=== PATIENT | female | born 1955 | race Caucasian/White ===

== ENCOUNTER 2022-11-13 14:32 | Inpatient (IN) | payer OTHER ==
[2022-11-13 17:33] LABS: BASO % 0.9 % (0-2.0); EOS % 1.1 % (0-4.5); HEMATOCRIT 41.5 % (32.4-45.2); LYMPH % 21.3 % (8-40); MCH 27.3 pg (25.7-33.7); MCHC 33.7 g/dl (32.0-36.0); MEAN CELL VOLUME 80.8 fl (80-96); MEAN PLT VOLUME 7.8 fl (7.5-11.1); MONO % 8.5 % (3.8-10.2); NEUT % 68.2 % (42.8-82.8); PLATELET COUNT 328 10^3/uL (134-434); RBC 5.13 M/mm3 (3.60-5.2); RDW 14.2 % (11.6-15.6); WHITE BLOOD COUNT 9.2 K/mm3 (4.0-10.0)
[2022-11-13] MEDS ORDERED: POLYETHYLENE GLYCOL (HEALTHYLAX) 3350 17 GM PACKET PO ONE (17:45)
[2022-11-13 18:03] LABS: ALBUMIN 3.4 g/dl (3.4-5.0); BLOOD UREA NITROGEN 16.1 mg/dL (7-18); CALCIUM 8.8 mg/dL (8.5-10.1)
[2022-11-13 18:06] LABS: CREATININE 0.9 mg/dL (0.55-1.3)
[2022-11-13 18:08] LABS: BILIRUBIN,TOTAL 0.8 mg/dL (0.2-1); TOT PROT 7.7 g/dl (6.4-8.2)
[2022-11-13] MEDS ORDERED: POLYETHYLENE GLYCOL (HEALTHYLAX) 3350 17 GM PACKET ONE (18:21)
[2022-11-14] MEDS: KCL 10 MEQ IVPB 10 MEQ/100 ML INFUS.BAG IVPB SCH ×2 (01:02→01:42)
[2022-11-14] MEDS ORDERED: ACETAMINOPHEN 325 MG TABLET (FP) PO PRN (03:20)
[2022-11-14 03:56] VITALS: BMI 34.1
[2022-11-14] MEDS: SODIUM CHLORIDE 1,000 ML IV SCH ×2 (04:18→18:52)
[2022-11-14 10:40] LABS: BASO % 1.1 % (0-2.0); EOS % 2.6 % (0-4.5); HEMATOCRIT 38.5 % (32.4-45.2); HEMOGLOBIN 13.3 GM/dL (10.7-15.3); LYMPH % 37.3 % (8-40); MCH 28.4 pg (25.7-33.7); MCHC 34.5 g/dl (32.0-36.0); MEAN CELL VOLUME 82.3 fl (80-96); MONO % 11.3 % (3.8-10.2); NEUT % 47.7 % (42.8-82.8); PLATELET COUNT 314 10^3/uL (134-434); RBC 4.68 M/mm3 (3.60-5.2); WHITE BLOOD COUNT 5.5 K/mm3 (4.0-10.0)
[2022-11-14 10:59] LABS: CALCIUM 8.7 mg/dL (8.5-10.1)
[2022-11-14 11:00] LABS: ALBUMIN 3.1 g/dl (3.4-5.0); BLOOD UREA NITROGEN 15.2 mg/dL (7-18); MAGNESIUM 1.9 mg/dL (1.8-2.4)
[2022-11-14 11:03] LABS: CREATININE 0.8 mg/dL (0.55-1.3); PHOSPHOROUS 3.5 mg/dL (2.5-4.9)
[2022-11-14 11:04] LABS: BILIRUBIN,TOTAL 0.8 mg/dL (0.2-1); TOT PROT 7.2 g/dl (6.4-8.2)
[2022-11-14 15:06] LABS: EPI CELLS 23 /uL (0-25.1); HYALINE CASTS 1 /uL (0-3.1); PH,URINE 6.5 (5.0-8.0); URINE APPEARANCE CLEAR; URINE BACTERIA 11 /uL (0-1359); URINE BILIRUBIN NEGATIVE (NEGATIVE); URINE COLOR YELLOW; URINE GLUCOSE (UA) NEGATIVE (NEGATIVE); URINE KETONE TRACE (NEGATIVE); URINE LEUK ESTERASE TRACE (NEGATIVE); URINE NITRITE NEGATIVE (NEGATIVE); URINE PROTEIN 1+ (NEGATIVE); URINE RBC 10 /uL (0-23.9); URINE UROBILINOGEN 0.2 mg/dL (0.2-1.0); URINE WBC 45 /uL (0-25.8)
[2022-11-15] MEDS: SODIUM CHLORIDE 1,000 ML IV SCH ×2 (03:14→12:44)
[2022-11-15 07:34] LABS: BASO % 1.2 % (0-2.0); EOS % 2.5 % (0-4.5); HEMATOCRIT 37.4 % (32.4-45.2); HEMOGLOBIN 12.6 GM/dL (10.7-15.3); LYMPH % 37.7 % (8-40); MCHC 33.8 g/dl (32.0-36.0); MEAN CELL VOLUME 82.9 fl (80-96); MEAN PLT VOLUME 7.9 fl (7.5-11.1); NEUT % 50.6 % (42.8-82.8); PLATELET COUNT 289 10^3/uL (134-434); RBC 4.52 M/mm3 (3.60-5.2); RDW 13.7 % (11.6-15.6)
[2022-11-15 08:49] LABS: ALBUMIN 2.9 g/dl (3.4-5.0); CALCIUM 8.2 mg/dL (8.5-10.1)
[2022-11-15 08:50] LABS: BLOOD UREA NITROGEN 9.8 mg/dL (7-18); MAGNESIUM 1.9 mg/dL (1.8-2.4)
[2022-11-15 08:53] LABS: CREATININE 0.7 mg/dL (0.55-1.3); PHOSPHOROUS 3.5 mg/dL (2.5-4.9)
[2022-11-15 08:54] LABS: BILIRUBIN,TOTAL 0.7 mg/dL (0.2-1); TOT PROT 6.6 g/dl (6.4-8.2)
[2022-11-15] MEDS ORDERED: SIMETHICONE 80 MG TAB.CHEW (FP) PO ONE (21:34)
[2022-11-16 10:44] LABS: BASO % 0.9 % (0-2.0); EOS % 1.8 % (0-4.5); HEMATOCRIT 38.3 % (32.4-45.2); LYMPH % 26.3 % (8-40); MCH 28.1 pg (25.7-33.7); MEAN CELL VOLUME 82.6 fl (80-96); MEAN PLT VOLUME 8.1 fl (7.5-11.1); MONO % 8.6 % (3.8-10.2); NEUT % 62.4 % (42.8-82.8); PLATELET COUNT 306 10^3/uL (134-434); RBC 4.64 M/mm3 (3.60-5.2); RDW 13.7 % (11.6-15.6); WHITE BLOOD COUNT 6.7 K/mm3 (4.0-10.0)
[2022-11-16 11:19] LABS: CALCIUM 8.4 mg/dL (8.5-10.1)
[2022-11-16 11:20] LABS: ALBUMIN 3.1 g/dl (3.4-5.0); BLOOD UREA NITROGEN 8.2 mg/dL (7-18)
[2022-11-16 11:21] LABS: MAGNESIUM 1.7 mg/dL (1.8-2.4)
[2022-11-16 11:23] LABS: CREATININE 0.7 mg/dL (0.55-1.3); PHOSPHOROUS 2.9 mg/dL (2.5-4.9)
[2022-11-16 11:25] LABS: BILIRUBIN,TOTAL 0.8 mg/dL (0.2-1)
[2022-11-16] MEDS ORDERED: POTASSIUM CHLORIDE ORAL LIQUID 20 MEQ/15 ML PO ONE (14:50)
[2022-11-16] MEDS ORDERED: MAGNESIUM 2GM/50ML STERILE WATER IVPB IVPB ONE (15:00)
[2022-11-17 09:39] LABS: BASO % 1.2 % (0-2.0); EOS % 3.2 % (0-4.5); HEMATOCRIT 40.2 % (32.4-45.2); HEMOGLOBIN 13.7 GM/dL (10.7-15.3); LYMPH % 37.8 % (8-40); MCH 28.2 pg (25.7-33.7); MCHC 34.1 g/dl (32.0-36.0); MEAN CELL VOLUME 82.6 fl (80-96); MEAN PLT VOLUME 7.8 fl (7.5-11.1); MONO % 9.5 % (3.8-10.2); NEUT % 48.3 % (42.8-82.8); PLATELET COUNT 318 10^3/uL (134-434); RBC 4.87 M/mm3 (3.60-5.2); RDW 13.8 % (11.6-15.6); WHITE BLOOD COUNT 5.4 K/mm3 (4.0-10.0)
[2022-11-17 10:02] LABS: ALBUMIN 3.3 g/dl (3.4-5.0); CALCIUM 8.8 mg/dL (8.5-10.1)
[2022-11-17 10:03] LABS: BLOOD UREA NITROGEN 7.5 mg/dL (7-18)
[2022-11-17 10:05] LABS: BILIRUBIN,TOTAL 0.8 mg/dL (0.2-1); PHOSPHOROUS 3.2 mg/dL (2.5-4.9); TOT PROT 7.5 g/dl (6.4-8.2)
[2022-11-17 10:06] LABS: CREATININE 0.8 mg/dL (0.55-1.3)
[2022-11-18 09:29] LABS: BASO % 1.1 % (0-2.0); EOS % 3.4 % (0-4.5); HEMATOCRIT 40.9 % (32.4-45.2); HEMOGLOBIN 13.5 GM/dL (10.7-15.3); LYMPH % 38.2 % (8-40); MCH 27.1 pg (25.7-33.7); MEAN PLT VOLUME 7.9 fl (7.5-11.1); MONO % 7.5 % (3.8-10.2); NEUT % 49.8 % (42.8-82.8); PLATELET COUNT 321 10^3/uL (134-434); RBC 4.99 M/mm3 (3.60-5.2); RDW 13.9 % (11.6-15.6); WHITE BLOOD COUNT 6.3 K/mm3 (4.0-10.0)
[2022-11-18 10:01] LABS: CALCIUM 8.9 mg/dL (8.5-10.1)
[2022-11-18 10:02] LABS: ALBUMIN 3.3 g/dl (3.4-5.0)
[2022-11-18 10:04] LABS: CREATININE 0.9 mg/dL (0.55-1.3); MAGNESIUM 1.9 mg/dL (1.8-2.4); PHOSPHOROUS 3.5 mg/dL (2.5-4.9)
[2022-11-18 10:05] LABS: BILIRUBIN,TOTAL 0.6 mg/dL (0.2-1); TOT PROT 7.4 g/dl (6.4-8.2)
[2022-11-19 05:28] VITALS: PULSE 98; RESP 18
[2022-11-19 10:00] LABS: BASO % 0.9 % (0-2.0); EOS % 3.4 % (0-4.5); HEMATOCRIT 39.3 % (32.4-45.2); HEMOGLOBIN 13.4 GM/dL (10.7-15.3); LYMPH % 34.8 % (8-40); MCH 28.1 pg (25.7-33.7); MEAN CELL VOLUME 82.6 fl (80-96); MEAN PLT VOLUME 8.3 fl (7.5-11.1); MONO % 5.5 % (3.8-10.2); NEUT % 55.4 % (42.8-82.8); PLATELET COUNT 313 10^3/uL (134-434); RBC 4.76 M/mm3 (3.60-5.2); RDW 13.9 % (11.6-15.6)
[2022-11-19] MEDS ORDERED: SIMETHICONE 80 MG TAB.CHEW (FP) PO PRN (10:02)
[2022-11-19 10:24] LABS: ALBUMIN 3.4 g/dl (3.4-5.0); BLOOD UREA NITROGEN 9.6 mg/dL (7-18); CALCIUM 8.8 mg/dL (8.5-10.1)
[2022-11-19 10:25] LABS: MAGNESIUM 1.7 mg/dL (1.8-2.4)
[2022-11-19 10:27] LABS: CREATININE 0.8 mg/dL (0.55-1.3); PHOSPHOROUS 3.6 mg/dL (2.5-4.9)
[2022-11-19 10:29] LABS: BILIRUBIN,TOTAL 0.4 mg/dL (0.2-1); TOT PROT 7.3 g/dl (6.4-8.2)
[2022-11-19] MEDS ORDERED: LACTOBACILLUS ACIDOPHILUS 1 TABLET PO SCH (11:30)
[2022-11-19 14:21] VITALS: BP 127/90; TEMP 97.9
== END 2022-11-19 15:46 | disposition home or self-care (01) | DRG 392 ==
LOC: JER 14:32 → JERBED 21:37 → J6S 11-14 03:25
PROVIDERS: ADMIT Internal Medicine; ATTEND Internal Medicine
DX: K57.20 Diverticulitis of large intestine with perforation and abscess without bleeding (principal); K59.00 Constipation, unspecified; D35.02 Benign neoplasm of left adrenal gland; D35.01 Benign neoplasm of right adrenal gland; I10 Essential (primary) hypertension; E87.6 Hypokalemia
CPT/HCPCS: 0241U-QW; 36415; 74019-TC-FY; 74177-TC; 80053; 80061; 81003; 83735; 84100; 85025; 85651; 86140; 87040; 93005; 93010; 99285-25; Q9967

== ENCOUNTER 2022-12-06 14:27 | Inpatient (IN) | payer OTHER ==
[2022-12-06] MEDS ORDERED: ACETAMINOPHEN 1000 MG/100 ML BAG IVPB ONE (15:00)
[2022-12-06] MEDS ORDERED: LACTATED RINGERS SOLUTION 1000 ML INFUS.BAG IV ONE (15:00)
[2022-12-06] MEDS ORDERED: ACETAMINOPHEN INJECTION 100 ML IVPB ONE (15:26)
[2022-12-06 16:11] LABS: BASO % 0.2 % (0-2.0); EOS % 0.1 % (0-4.5); HEMATOCRIT 40.3 % (32.4-45.2); HEMOGLOBIN 13.7 GM/dL (10.7-15.3); LYMPH % 8.6 % (8-40); MCH 27.6 pg (25.7-33.7); MCHC 33.9 g/dl (32.0-36.0); MEAN CELL VOLUME 81.5 fl (80-96); MEAN PLT VOLUME 7.6 fl (7.5-11.1); MONO % 6.4 % (3.8-10.2); NEUT % 84.7 % (42.8-82.8); PLATELET COUNT 368 10^3/uL (134-434); RBC 4.94 M/mm3 (3.60-5.2); RDW 14.8 % (11.6-15.6); WHITE BLOOD COUNT 10.5 K/mm3 (4.0-10.0)
[2022-12-06] MEDS ORDERED: morphine CARPU-JECT 4 MG/1 ML DISP.SYRIN IVPUSH ONE ×2 (16:14→18:59)
[2022-12-06] MEDS ORDERED: morphine SULFATE 4 MG/ML VIAL ONE ×3 (16:17→21:54)
[2022-12-06 16:47] LABS: POTASSIUM 3.3 mmol/L (3.5-5.1)
[2022-12-06 16:49] LABS: CALCIUM 9.2 mg/dL (8.5-10.1)
[2022-12-06 16:50] LABS: ALBUMIN 3.3 g/dl (3.4-5.0); BLOOD UREA NITROGEN 14.3 mg/dL (7-18)
[2022-12-06 16:51] LABS: MAGNESIUM 1.6 mg/dL (1.8-2.4)
[2022-12-06 16:53] LABS: CREATININE 0.8 mg/dL (0.55-1.3)
[2022-12-06 16:55] LABS: TOT PROT 7.8 g/dl (6.4-8.2)
[2022-12-06 16:59] LABS: LACTIC ACID 2.3 mmol/L (0.4-2.0)
[2022-12-06] MEDS: KCL 10 MEQ IVPB 10 MEQ/100 ML INFUS.BAG IVPB SCH ×3 (17:30→18:56)
[2022-12-06] MEDS ORDERED: PIPERACILLIN/TAZOB 4.5 GM 4.5 GM in DEXTROSE 5%-WATER 100 ML IVPB ONE (18:11)
[2022-12-06] MEDS ORDERED: PIPERACILLIN/TAZOB 4.5 GM 4.5 GM/100 ML BAG IVPB ONE (18:44)
[2022-12-06] MEDS ORDERED: KCL 10 MEQ IVPB 30 MEQ/300 ML INFUS.BAG IVPB ONE (18:44)
[2022-12-06] MEDS ORDERED: KETOROLAC TROMETHAMINE 15 MG/ML VIAL IVPUSH ONE (19:14)
[2022-12-06] MEDS ORDERED: KETOROLAC TROMETHAMINE 15 MG/ML VIAL ONE (20:10)
[2022-12-06] MEDS ORDERED: PIPERACILLIN/TAZOB 3.375 GM 3.375 GM in DEXTROSE 5%-WATER - 50 ML IVPB SCH (21:00)
[2022-12-06 21:31] LABS: URINE APPEARANCE CLEAR; URINE BILIRUBIN NEGATIVE (NEGATIVE); URINE COLOR YELLOW; URINE GLUCOSE (UA) NEGATIVE (NEGATIVE); URINE KETONE 15 mg/dl (NEGATIVE)
[2022-12-06 21:32] LABS: PH,URINE 6.5 (5.0-8.0); URINE LEUK ESTERASE NEGATIVE (NEGATIVE); URINE NITRITE NEGATIVE (NEGATIVE); URINE PROTEIN 30 (NEGATIVE)
[2022-12-06] MEDS: LACTATED RINGERS SOLUTION 1,000 ML IV SCH (21:52)
[2022-12-06] MEDS: morphine SULFATE 4 MG/ML VIAL IVPUSH PRN (21:59)
[2022-12-07] MEDS: PIPERACILLIN/TAZOB 3.375 GM 3.375 GM in DEXTROSE 5%-WATER - 50 ML IVPB SCH ×4 (01:07→21:23)
[2022-12-07] MEDS ORDERED: MAGNESIUM 2GM/50ML STERILE WATER IVPB IVPB ONE (04:15)
[2022-12-07] MEDS: morphine SULFATE 4 MG/ML VIAL IVPUSH PRN ×3 (07:40→21:15)
[2022-12-07] MEDS ORDERED: ONDANSETRON 4 MG/2 ML VIAL IVPUSH ONE (08:15)
[2022-12-07] MEDS ORDERED: TRIMETHOBENZAMIDE HCL 200MG/2ML INJ IM PRN (08:52)
[2022-12-07 09:07] LABS: INR 1.2 (0.83-1.09); PROTHROMBIN TIME (PATIENT) 13.9 SEC (9.7-13.0)
[2022-12-07 09:10] LABS: ACTIVATED PTT 26.9 SECONDS (25.2-36.5); HEMATOCRIT 36.5 % (32.4-45.2); HEMOGLOBIN 12.4 GM/dL (10.7-15.3); MCH 27.8 pg (25.7-33.7); MEAN CELL VOLUME 81.9 fl (80-96); MEAN PLT VOLUME 7.7 fl (7.5-11.1); PLATELET COUNT 342 10^3/uL (134-434); RBC 4.46 M/mm3 (3.60-5.2); RDW 14.7 % (11.6-15.6); WHITE BLOOD COUNT 7.6 K/mm3 (4.0-10.0)
[2022-12-07 09:20] LABS: POTASSIUM 3.2 mmol/L (3.5-5.1)
[2022-12-07 09:34] LABS: CALCIUM 8.6 mg/dL (8.5-10.1)
[2022-12-07 09:35] LABS: ALBUMIN 2.7 g/dl (3.4-5.0); BLOOD UREA NITROGEN 13.6 mg/dL (7-18)
[2022-12-07 09:38] LABS: CREATININE 0.8 mg/dL (0.55-1.3); PHOSPHOROUS 3.4 mg/dL (2.5-4.9)
[2022-12-07 09:39] LABS: BILIRUBIN,TOTAL 1.1 mg/dL (0.2-1); TOT PROT 6.6 g/dl (6.4-8.2)
[2022-12-07] MEDS ORDERED: PANTOPRAZOLE SODIUM 40 MG in SODIUM CHLORIDE 100 ML IVPB SCH (10:00)
[2022-12-07] MEDS: KCL 10 MEQ IVPB 10 MEQ/100 ML INFUS.BAG IVPB SCH ×2 (10:05→12:56)
[2022-12-07] MEDS: PANTOPRAZOLE SODIUM 40 MG VIAL IVPUSH SCH (10:23)
[2022-12-07] MEDS: ACETAMINOPHEN 1000 MG/100 ML BAG IVPB PRN (15:09)
[2022-12-07] MEDS: LACTATED RINGERS SOLUTION 1,000 ML IV SCH (23:07)
[2022-12-08] MEDS: LACTATED RINGERS SOLUTION 1,000 ML IV SCH ×2 (01:11→10:41)
[2022-12-08] MEDS: ACETAMINOPHEN 1000 MG/100 ML BAG IVPB PRN (01:16)
[2022-12-08] MEDS: PIPERACILLIN/TAZOB 3.375 GM 3.375 GM in DEXTROSE 5%-WATER - 50 ML IVPB SCH ×3 (05:12→21:13)
[2022-12-08] MEDS: morphine SULFATE 4 MG/ML VIAL IVPUSH PRN ×2 (06:59→11:35)
[2022-12-08] MEDS: PANTOPRAZOLE SODIUM 40 MG VIAL IVPUSH SCH (09:47)
[2022-12-08 11:30] LABS: BASO % 0.6 % (0-2.0); EOS % 3.3 % (0-4.5); HEMATOCRIT 34.3 % (32.4-45.2); HEMOGLOBIN 11.8 GM/dL (10.7-15.3); LYMPH % 29.5 % (8-40); MCH 28.3 pg (25.7-33.7); MCHC 34.5 g/dl (32.0-36.0); MEAN CELL VOLUME 82.2 fl (80-96); MEAN PLT VOLUME 7.7 fl (7.5-11.1); NEUT % 57.6 % (42.8-82.8); PLATELET COUNT 312 10^3/uL (134-434); RBC 4.17 M/mm3 (3.60-5.2); RDW 14.8 % (11.6-15.6)
[2022-12-08 12:04] LABS: POTASSIUM 3.5 mmol/L (3.5-5.1)
[2022-12-08 12:10] LABS: CALCIUM 8.3 mg/dL (8.5-10.1)
[2022-12-08 12:11] LABS: ALBUMIN 2.7 g/dl (3.4-5.0); MAGNESIUM 1.9 mg/dL (1.8-2.4)
[2022-12-08 12:12] LABS: BLOOD UREA NITROGEN 9.7 mg/dL (7-18)
[2022-12-08 12:13] LABS: CREATININE 0.7 mg/dL (0.55-1.3)
[2022-12-08 12:15] LABS: TOT PROT 6.7 g/dl (6.4-8.2)
[2022-12-08 12:16] LABS: BILIRUBIN,TOTAL 0.7 mg/dL (0.2-1)
[2022-12-08] MEDS: KETOROLAC TROMETHAMINE 30 MG/1 ML VIAL IVPUSH PRN (19:56)
[2022-12-08] MEDS: HEPARIN NA (PORCINE) 5,000 UNITS/ML 1ML VIAL SQ SCH (21:12)
[2022-12-09] MEDS: PIPERACILLIN/TAZOB 3.375 GM 3.375 GM in DEXTROSE 5%-WATER - 50 ML IVPB SCH ×3 (05:20→22:00)
[2022-12-09] MEDS: morphine SULFATE 4 MG/ML VIAL IVPUSH PRN ×2 (06:29→17:24)
[2022-12-09 09:35] LABS: BASO % 0.8 % (0-2.0); EOS % 2.3 % (0-4.5); HEMATOCRIT 35.5 % (32.4-45.2); HEMOGLOBIN 12.3 GM/dL (10.7-15.3); LYMPH % 30.1 % (8-40); MCH 28.2 pg (25.7-33.7); MCHC 34.8 g/dl (32.0-36.0); MEAN CELL VOLUME 81.1 fl (80-96); MEAN PLT VOLUME 7.4 fl (7.5-11.1); MONO % 8.5 % (3.8-10.2); NEUT % 58.3 % (42.8-82.8); PLATELET COUNT 350 10^3/uL (134-434); RBC 4.37 M/mm3 (3.60-5.2); RDW 14.9 % (11.6-15.6); WHITE BLOOD COUNT 6.3 K/mm3 (4.0-10.0)
[2022-12-09 10:05] LABS: POTASSIUM 4.1 mmol/L (3.5-5.1)
[2022-12-09] MEDS: PANTOPRAZOLE SODIUM 40 MG VIAL IVPUSH SCH (10:06)
[2022-12-09] MEDS: HEPARIN NA (PORCINE) 5,000 UNITS/ML 1ML VIAL SQ SCH ×2 (10:06→22:00)
[2022-12-09 10:08] LABS: BLOOD UREA NITROGEN 4.9 mg/dL (7-18); CALCIUM 8.8 mg/dL (8.5-10.1); MAGNESIUM 1.8 mg/dL (1.8-2.4)
[2022-12-09 10:11] LABS: CREATININE 0.7 mg/dL (0.55-1.3)
[2022-12-09 10:13] LABS: BILIRUBIN,TOTAL 0.9 mg/dL (0.2-1); TOT PROT 7.5 g/dl (6.4-8.2)
[2022-12-09] MEDS: LACTATED RINGERS SOLUTION 1,000 ML IV SCH (15:08)
[2022-12-10] MEDS: PIPERACILLIN/TAZOB 3.375 GM 3.375 GM in DEXTROSE 5%-WATER - 50 ML IVPB SCH ×3 (05:51→22:50)
[2022-12-10] MEDS: morphine SULFATE 4 MG/ML VIAL IVPUSH PRN ×2 (09:23→20:30)
[2022-12-10] MEDS: HEPARIN NA (PORCINE) 5,000 UNITS/ML 1ML VIAL SQ SCH ×2 (09:24→22:51)
[2022-12-10] MEDS: PANTOPRAZOLE SODIUM 40 MG VIAL IVPUSH SCH (09:28)
[2022-12-10] MEDS: KETOROLAC TROMETHAMINE 30 MG/1 ML VIAL IVPUSH PRN (13:20)
[2022-12-11] MEDS: PIPERACILLIN/TAZOB 3.375 GM 3.375 GM in DEXTROSE 5%-WATER - 50 ML IVPB SCH ×3 (07:31→23:21)
[2022-12-11] MEDS: morphine SULFATE 4 MG/ML VIAL IVPUSH PRN ×3 (07:41→17:20)
[2022-12-11 10:02] LABS: BASO % 0.4 % (0-2.0); EOS % 1.5 % (0-4.5); HEMOGLOBIN 12.1 GM/dL (10.7-15.3); MCH 28.2 pg (25.7-33.7); MCHC 35.5 g/dl (32.0-36.0); MEAN CELL VOLUME 79.7 fl (80-96); MEAN PLT VOLUME 7.3 fl (7.5-11.1); MONO % 9.3 % (3.8-10.2); NEUT % 56.8 % (42.8-82.8); PLATELET COUNT 386 10^3/uL (134-434); RBC 4.27 M/mm3 (3.60-5.2); RDW 14.7 % (11.6-15.6); WHITE BLOOD COUNT 6.1 K/mm3 (4.0-10.0)
[2022-12-11 10:07] LABS: POTASSIUM 3.1 mmol/L (3.5-5.1)
[2022-12-11 10:16] LABS: ALBUMIN 2.7 g/dl (3.4-5.0); CALCIUM 8.6 mg/dL (8.5-10.1); MAGNESIUM 1.8 mg/dL (1.8-2.4)
[2022-12-11 10:19] LABS: CREATININE 0.7 mg/dL (0.55-1.3)
[2022-12-11 10:21] LABS: BILIRUBIN,TOTAL 0.7 mg/dL (0.2-1); TOT PROT 6.6 g/dl (6.4-8.2)
[2022-12-11] MEDS: PANTOPRAZOLE SODIUM 40 MG VIAL IVPUSH SCH (10:42)
[2022-12-11] MEDS: HEPARIN NA (PORCINE) 5,000 UNITS/ML 1ML VIAL SQ SCH ×2 (10:42→23:21)
[2022-12-12 08:01] LABS: BASO % 0.6 % (0-2.0); EOS % 2.8 % (0-4.5); HEMATOCRIT 36.2 % (32.4-45.2); HEMOGLOBIN 12.7 GM/dL (10.7-15.3); LYMPH % 40.3 % (8-40); MCH 28.1 pg (25.7-33.7); MCHC 34.9 g/dl (32.0-36.0); MEAN CELL VOLUME 80.4 fl (80-96); MONO % 10.9 % (3.8-10.2); NEUT % 45.4 % (42.8-82.8); PLATELET COUNT 404 10^3/uL (134-434); RBC 4.51 M/mm3 (3.60-5.2); RDW 14.4 % (11.6-15.6); WHITE BLOOD COUNT 6.1 K/mm3 (4.0-10.0)
[2022-12-12 08:30] LABS: POTASSIUM 3.5 mmol/L (3.5-5.1)
[2022-12-12 08:33] LABS: CALCIUM 8.8 mg/dL (8.5-10.1)
[2022-12-12 08:35] LABS: ALBUMIN 2.8 g/dl (3.4-5.0); BLOOD UREA NITROGEN 5.9 mg/dL (7-18); MAGNESIUM 1.8 mg/dL (1.8-2.4)
[2022-12-12 08:37] LABS: CREATININE 0.7 mg/dL (0.55-1.3)
[2022-12-12 08:39] LABS: BILIRUBIN,TOTAL 0.6 mg/dL (0.2-1)
[2022-12-12] MEDS: HEPARIN NA (PORCINE) 5,000 UNITS/ML 1ML VIAL SQ SCH ×2 (09:38→21:38)
[2022-12-12] MEDS: PANTOPRAZOLE 40 MG TABLET PO SCH (09:38)
[2022-12-12] MEDS ORDERED: AMOX TR/POT CLAV 875MG/125MG TABLETS (FP) PO SCH (10:00)
[2022-12-12] MEDS: ACETAMINOPHEN 325 MG TABLET (FP) PO PRN ×2 (12:17→21:37)
[2022-12-12] MEDS: ACETAMINOPHEN 1000 MG/100 ML BAG IVPB PRN ×2 (13:15→19:29)
[2022-12-12] MEDS: DEXTROSE 5%-NORMAL SALINE 1,000 ML IV SCH (17:11)
[2022-12-12] MEDS: PIPERACILLIN/TAZOB 3.375 GM 3.375 GM in DEXTROSE 5%-WATER - 50 ML IVPB SCH (17:12)
[2022-12-13] MEDS: PIPERACILLIN/TAZOB 3.375 GM 3.375 GM in DEXTROSE 5%-WATER - 50 ML IVPB SCH ×4 (01:40→17:19)
[2022-12-13] MEDS: DEXTROSE 5%-NORMAL SALINE 1,000 ML IV SCH ×3 (04:44→17:18)
[2022-12-13] MEDS: ACETAMINOPHEN 1000 MG/100 ML BAG IVPB PRN ×2 (05:31→09:51)
[2022-12-13] MEDS: HEPARIN NA (PORCINE) 5,000 UNITS/ML 1ML VIAL SQ SCH ×2 (09:57→22:04)
[2022-12-13] MEDS: PANTOPRAZOLE 40 MG TABLET PO SCH (09:57)
[2022-12-13] MEDS: ACETAMINOPHEN 325 MG TABLET (FP) PO PRN ×2 (15:24→22:05)
[2022-12-13] MEDS ORDERED: ACETAMINOPHEN 1000 MG/100 ML BAG IVPB ONE (16:54)
[2022-12-13 17:40] VITALS: BMI 33.4
[2022-12-14] MEDS: PIPERACILLIN/TAZOB 3.375 GM 3.375 GM in DEXTROSE 5%-WATER - 50 ML IVPB SCH ×3 (01:54→17:24)
[2022-12-14] MEDS: DEXTROSE 5%-NORMAL SALINE 1,000 ML IV SCH ×3 (02:03→17:19)
[2022-12-14] MEDS: ACETAMINOPHEN 325 MG TABLET (FP) PO PRN (04:11)
[2022-12-14] MEDS ORDERED: ACETAMINOPHEN 1000 MG/100 ML BAG IVPB PRN (09:37)
[2022-12-14] MEDS: PANTOPRAZOLE 40 MG TABLET PO SCH (09:42)
[2022-12-14] MEDS: HEPARIN NA (PORCINE) 5,000 UNITS/ML 1ML VIAL SQ SCH ×2 (09:44→21:04)
[2022-12-14] MEDS ORDERED: POTASSIUM CHLORIDE TABS 20 MEQ TABLET.ER (FP) PO ONE (11:18)
[2022-12-14] MEDS ORDERED: ONDANSETRON 4 MG/2 ML VIAL IVPUSH ONE (16:32)
[2022-12-15] MEDS: PIPERACILLIN/TAZOB 3.375 GM 3.375 GM in DEXTROSE 5%-WATER - 50 ML IVPB SCH ×3 (01:05→19:36)
[2022-12-15] MEDS: HEPARIN NA (PORCINE) 5,000 UNITS/ML 1ML VIAL SQ SCH ×2 (09:01→21:15)
[2022-12-15] MEDS: PANTOPRAZOLE 40 MG TABLET PO SCH (09:01)
[2022-12-15 10:53] LABS: BASO % 1.1 % (0-2.0); EOS % 5.4 % (0-4.5); HEMATOCRIT 29.3 % (32.4-45.2); HEMOGLOBIN 9.6 GM/dL (10.7-15.3); MCH 25.5 pg (25.7-33.7); MCHC 32.6 g/dl (32.0-36.0); MEAN CELL VOLUME 78.2 fl (80-96); MEAN PLT VOLUME 7.5 fl (7.5-11.1); NEUT % 68.5 % (42.8-82.8); PLATELET COUNT 281 10^3/uL (134-434); RBC 3.74 M/mm3 (3.60-5.2); RDW 18.5 % (11.6-15.6); WHITE BLOOD COUNT 5.6 K/mm3 (4.0-10.0)
[2022-12-15 11:12] LABS: POTASSIUM 3.7 mmol/L (3.5-5.1)
[2022-12-15 11:13] LABS: CALCIUM 8.1 mg/dL (8.5-10.1)
[2022-12-15 11:14] LABS: ALBUMIN 2.2 g/dl (3.4-5.0); BLOOD UREA NITROGEN 5.4 mg/dL (7-18); MAGNESIUM 1.7 mg/dL (1.8-2.4)
[2022-12-15 11:17] LABS: CREATININE 0.6 mg/dL (0.55-1.3)
[2022-12-15 11:19] LABS: BILIRUBIN,TOTAL 0.2 mg/dL (0.2-1); TOT PROT 7.3 g/dl (6.4-8.2)
[2022-12-15] MEDS: DEXTROSE 5%-NORMAL SALINE 1,000 ML IV SCH (19:34)
[2022-12-16] MEDS: PIPERACILLIN/TAZOB 3.375 GM 3.375 GM in DEXTROSE 5%-WATER - 50 ML IVPB SCH ×3 (02:15→17:37)
[2022-12-16] MEDS ORDERED: POLYETHYLENE GLYCOL 3350 255 GM BTL PO ONE (10:00)
[2022-12-16 10:33] LABS: BASO % 0.9 % (0-2.0); EOS % 3.3 % (0-4.5); HEMATOCRIT 34.1 % (32.4-45.2); HEMOGLOBIN 11.8 GM/dL (10.7-15.3); LYMPH % 40.9 % (8-40); MCH 28.3 pg (25.7-33.7); MCHC 34.6 g/dl (32.0-36.0); MEAN CELL VOLUME 81.7 fl (80-96); MEAN PLT VOLUME 7.1 fl (7.5-11.1); MONO % 10.3 % (3.8-10.2); NEUT % 44.6 % (42.8-82.8); PLATELET COUNT 373 10^3/uL (134-434); RBC 4.17 M/mm3 (3.60-5.2); RDW 14.7 % (11.6-15.6); WHITE BLOOD COUNT 4.9 K/mm3 (4.0-10.0)
[2022-12-16] MEDS: PANTOPRAZOLE 40 MG TABLET PO SCH (10:34)
[2022-12-16] MEDS: HEPARIN NA (PORCINE) 5,000 UNITS/ML 1ML VIAL SQ SCH (10:34)
[2022-12-16 10:52] LABS: POTASSIUM 3.2 mmol/L (3.5-5.1)
[2022-12-16 10:57] LABS: CALCIUM 8.1 mg/dL (8.5-10.1)
[2022-12-16 10:58] LABS: ALBUMIN 2.4 g/dl (3.4-5.0); MAGNESIUM 1.5 mg/dL (1.8-2.4)
[2022-12-16 11:01] LABS: CREATININE 0.7 mg/dL (0.55-1.3)
[2022-12-16 11:02] LABS: BILIRUBIN,TOTAL 0.4 mg/dL (0.2-1); TOT PROT 6.3 g/dl (6.4-8.2)
[2022-12-16] MEDS: POTASSIUM CHLORIDE TABS 20 MEQ TABLET.ER (FP) PO SCH ×2 (11:50→22:10)
[2022-12-16] MEDS: MAGNESIUM OXIDE 400 MG TABLET (FP) PO SCH ×2 (11:50→22:11)
[2022-12-16] MEDS ORDERED: BISACODYL 5 MG TABLET.DR (FP) PO ONE (12:00)
[2022-12-16] MEDS: metroNIDAZOLE 500 MG TABLET PO SCH ×3 (13:45→22:32)
[2022-12-16] MEDS: NEOMYCIN SO4 500 MG TABLET PO SCH ×3 (13:45→22:32)
[2022-12-16] MEDS: DEXTROSE 5%-NORMAL SALINE 1,000 ML IV SCH (14:08)
[2022-12-16] MEDS ORDERED: ONDANSETRON 4 MG/2 ML VIAL IVPUSH PRN (14:57)
[2022-12-17] MEDS: DEXTROSE 5%-NORMAL SALINE 1,000 ML IV SCH ×3 (01:02→17:45)
[2022-12-17] MEDS: PIPERACILLIN/TAZOB 3.375 GM 3.375 GM in DEXTROSE 5%-WATER - 50 ML IVPB SCH ×4 (01:13→17:45)
[2022-12-17] MEDS: PANTOPRAZOLE 40 MG TABLET PO SCH (10:16)
[2022-12-17 11:43] LABS: BASO % 0.6 % (0-2.0); EOS % 1.3 % (0-4.5); HEMATOCRIT 34.5 % (32.4-45.2); HEMOGLOBIN 11.9 GM/dL (10.7-15.3); LYMPH % 33.3 % (8-40); MCH 27.8 pg (25.7-33.7); MCHC 34.3 g/dl (32.0-36.0); MEAN PLT VOLUME 7.9 fl (7.5-11.1); MONO % 10.1 % (3.8-10.2); NEUT % 54.7 % (42.8-82.8); PLATELET COUNT 381 10^3/uL (134-434); RBC 4.26 M/mm3 (3.60-5.2); RDW 15.1 % (11.6-15.6); WHITE BLOOD COUNT 4.7 K/mm3 (4.0-10.0)
[2022-12-17 11:49] LABS: INR 1.18 (0.83-1.09); PROTHROMBIN TIME (PATIENT) 13.7 SEC (9.7-13.0)
[2022-12-17 11:59] LABS: POTASSIUM 3.3 mmol/L (3.5-5.1)
[2022-12-17 12:02] LABS: BLOOD UREA NITROGEN 5.3 mg/dL (7-18); CALCIUM 8.2 mg/dL (8.5-10.1); MAGNESIUM 1.4 mg/dL (1.8-2.4)
[2022-12-17 12:03] LABS: ALBUMIN 2.6 g/dl (3.4-5.0)
[2022-12-17 12:06] LABS: CREATININE 0.9 mg/dL (0.55-1.3)
[2022-12-17 12:07] LABS: BILIRUBIN,TOTAL 0.9 mg/dL (0.2-1); TOT PROT 6.6 g/dl (6.4-8.2)
[2022-12-17] MEDS: HEPARIN NA (PORCINE) 5,000 UNITS/ML 1ML VIAL SQ SCH (21:29)
[2022-12-18] MEDS ORDERED: BUPIVACAINE HCL/PF 0.5% (5MG/ML) 10 ML VIAL IJ ONE
[2022-12-18] MEDS: PIPERACILLIN/TAZOB 3.375 GM 3.375 GM in DEXTROSE 5%-WATER - 50 ML IVPB SCH ×3 (02:18→18:36)
[2022-12-18 08:46] LABS: BASO % 1.2 % (0-2.0); EOS % 3.9 % (0-4.5); HEMATOCRIT 36.5 % (32.4-45.2); HEMOGLOBIN 12.4 GM/dL (10.7-15.3); LYMPH % 39.1 % (8-40); MCH 27.7 pg (25.7-33.7); MCHC 33.9 g/dl (32.0-36.0); MEAN CELL VOLUME 81.5 fl (80-96); MEAN PLT VOLUME 7.1 fl (7.5-11.1); MONO % 8.6 % (3.8-10.2); NEUT % 47.2 % (42.8-82.8); PLATELET COUNT 384 10^3/uL (134-434); RBC 4.47 M/mm3 (3.60-5.2); RDW 15.2 % (11.6-15.6); WHITE BLOOD COUNT 4.9 K/mm3 (4.0-10.0)
[2022-12-18 09:11] LABS: POTASSIUM 3.1 mmol/L (3.5-5.1)
[2022-12-18 09:18] LABS: ALBUMIN 2.8 g/dl (3.4-5.0); CREATININE 0.7 mg/dL (0.55-1.3)
[2022-12-18 09:19] LABS: CALCIUM 8.5 mg/dL (8.5-10.1); MAGNESIUM 1.6 mg/dL (1.8-2.4); TOT PROT 6.9 g/dl (6.4-8.2)
[2022-12-18 09:25] LABS: BILIRUBIN,TOTAL 1.2 mg/dL (0.2-1)
[2022-12-18] MEDS: PANTOPRAZOLE 40 MG TABLET PO SCH (10:14)
[2022-12-18] MEDS: HEPARIN NA (PORCINE) 5,000 UNITS/ML 1ML VIAL SQ SCH (10:14)
[2022-12-18] MEDS ORDERED: SCOPOLAMINE HYDROBROMIDE 1 PATCH PATCH.TD72 TD SCH (13:00)
[2022-12-18] MEDS ORDERED: GABAPENTIN 250 MG/5 ML ORAL SOLUTION, 470 ML BOTTLE PO ONE (13:00)
[2022-12-18] MEDS ORDERED: CEFOXITIN SODIUM 1 GM IVPB ONE (14:43)
[2022-12-18] MEDS ORDERED: HEPARIN NA (PORCINE) 5,000 UNITS/ML 1ML VIAL ONE (14:43)
[2022-12-18] MEDS ORDERED: BUPIVACAINE HCL/PF 0.25% (2.5MG/ML) 10 ML VIAL ONE (14:43)
[2022-12-18] MEDS ORDERED: ROCURONIUM BROMIDE 50 MG/5 ML SYRINGE ONE ×3 (15:15→19:23)
[2022-12-18] MEDS ORDERED: MIDAZOLAM HCL 2 MG/2 ML SINGLE DOSE VIAL ONE (15:16)
[2022-12-18] MEDS ORDERED: PROPOFOL 20 ML ONE ×2 (15:16→20:28)
[2022-12-18] MEDS ORDERED: SUCCINYLCHOLINE CHLORIDE 200 MG/10 ML SYRINGE ONE (15:18)
[2022-12-18] MEDS ORDERED: SCOPOLAMINE HYDROBROMIDE 1 PATCH PATCH.TD72 ONE (15:20)
[2022-12-18] MEDS ORDERED: LIDOCAINE HCL/PF 2% SDV 5ML VIAL ONE (15:29)
[2022-12-18] MEDS ORDERED: cefOXitin SODIUM 2 GM VIAL (RESTRICTED TO ID) IVPB ONE (15:48)
[2022-12-18] MEDS ORDERED: INDOCYANINE GREEN 25 MG/10 ML VIAL IVPUSH ONE (15:50)
[2022-12-18] MEDS ORDERED: HEPARIN NA (PORCINE) 5,000 UNITS/ML 1ML VIAL SQ ONE (15:50)
[2022-12-18] MEDS ORDERED: ACETAMINOPHEN INJECTION 100 ML IVPB ONE (16:29)
[2022-12-18] MEDS: DEXTROSE 5%-NORMAL SALINE 1,000 ML IV SCH ×2 (16:58→22:40)
[2022-12-18] MEDS ORDERED: SUGAMMADEX SODIUM 200 MG/2 ML VIAL ONE (20:49)
[2022-12-18] MEDS ORDERED: ONDANSETRON 4 MG/2 ML VIAL IVPUSH PRN ×2 (21:06→21:24)
[2022-12-18] MEDS ORDERED: ONDANSETRON 4 MG/2 ML VIAL ONE (21:12)
[2022-12-18] MEDS ORDERED: BACLOFEN 10 MG TABLET (FP) PO PRN (21:24)
[2022-12-18] MEDS ORDERED: oxyCODONE HCL 5 MG TABLET PO PRN ×2 (21:24)
[2022-12-18] MEDS ORDERED: TRIMETHOBENZAMIDE HCL 200MG/2ML INJ IM PRN (21:24)
[2022-12-18] MEDS ORDERED: HYDROmorphone *PCA* 10MG/50ML DISP.SYRIN ONE (22:27)
[2022-12-18] MEDS: HYDROmorphone *PCA* 10MG/50ML DISP.SYRIN PCA SCH (22:40)
[2022-12-19] MEDS: PIPERACILLIN/TAZOB 3.375 GM 3.375 GM in DEXTROSE 5%-WATER - 50 ML IVPB SCH ×3 (02:01→17:12)
[2022-12-19] MEDS: GABAPENTIN 300 MG CAPSULE PO SCH ×4 (02:59→21:03)
[2022-12-19] MEDS: IBUPROFEN 400 MG TABLET (FP) PO SCH ×2 (03:00→06:44)
[2022-12-19] MEDS: ACETAMINOPHEN 1000 MG/100 ML BAG IVPB SCH ×4 (03:02→19:18)
[2022-12-19] MEDS: HYDROmorphone *PCA* 10MG/50ML DISP.SYRIN PCA SCH (04:01)
[2022-12-19] MEDS: PANTOPRAZOLE 40 MG TABLET PO SCH ×2 (09:21→10:50)
[2022-12-19] MEDS ORDERED: morphine SULFATE 4 MG/ML VIAL SQ PRN (10:15)
[2022-12-19] MEDS: IBUPROFEN 800 MG/8 ML IJ IVPB SCH ×3 (10:48→23:06)
[2022-12-19] MEDS: HEPARIN NA (PORCINE) 5,000 UNITS/ML 1ML VIAL SQ SCH ×2 (10:49→17:12)
[2022-12-19] MEDS: BENZOCAINE/MENTH/CETYLPYRD CL 1 EACH LOZENGE MM PRN ×2 (10:50→16:17)
[2022-12-19 11:56] LABS: BASO % 0.1 % (0-2.0); HEMATOCRIT 36.3 % (32.4-45.2); MCH 27.4 pg (25.7-33.7); MCHC 33.1 g/dl (32.0-36.0); MEAN CELL VOLUME 82.8 fl (80-96); MEAN PLT VOLUME 7.2 fl (7.5-11.1); MONO % 6.1 % (3.8-10.2); NEUT % 85.8 % (42.8-82.8); PLATELET COUNT 331 10^3/uL (134-434); RBC 4.39 M/mm3 (3.60-5.2); RDW 15.2 % (11.6-15.6); WHITE BLOOD COUNT 12.5 K/mm3 (4.0-10.0)
[2022-12-19 12:22] LABS: POTASSIUM 3.3 mmol/L (3.5-5.1)
[2022-12-19 12:25] LABS: ALBUMIN 2.3 g/dl (3.4-5.0); BLOOD UREA NITROGEN 5.4 mg/dL (7-18); MAGNESIUM 1.5 mg/dL (1.8-2.4)
[2022-12-19 12:29] LABS: CREATININE 0.8 mg/dL (0.55-1.3)
[2022-12-19 12:30] LABS: BILIRUBIN,TOTAL 0.6 mg/dL (0.2-1)
[2022-12-19] MEDS: DEXTROSE 5%-NORMAL SALINE 1,000 ML IV SCH (16:02)
[2022-12-19] MEDS ORDERED: SODIUM CHLORIDE 1,000 ML IV STA (21:11)
[2022-12-19] MEDS ORDERED: DEXTROSE 5%-NORMAL SALINE 1,000 ML IV SCH (21:14)
[2022-12-20] MEDS: ACETAMINOPHEN 1000 MG/100 ML BAG IVPB SCH ×2 (02:19→06:20)
[2022-12-20] MEDS: PIPERACILLIN/TAZOB 3.375 GM 3.375 GM in DEXTROSE 5%-WATER - 50 ML IVPB SCH ×3 (02:20→18:50)
[2022-12-20] MEDS: HEPARIN NA (PORCINE) 5,000 UNITS/ML 1ML VIAL SQ SCH ×4 (02:20→23:13)
[2022-12-20] MEDS: IBUPROFEN 800 MG/8 ML IJ IVPB SCH (04:37)
[2022-12-20] MEDS: GABAPENTIN 300 MG CAPSULE PO SCH ×3 (06:13→23:13)
[2022-12-20] MEDS ORDERED: PIPERACILLIN/TAZOBACTAM 3.375 GM VIAL IVPB ONE (09:19)
[2022-12-20] MEDS: BENZOCAINE/MENTH/CETYLPYRD CL 1 EACH LOZENGE MM PRN (10:01)
[2022-12-20] MEDS: PANTOPRAZOLE 40 MG TABLET PO SCH (10:21)
[2022-12-20 13:03] LABS: BASO % 0.3 % (0-2.0); EOS % 0.9 % (0-4.5); HEMATOCRIT 33.8 % (32.4-45.2); HEMOGLOBIN 11.2 GM/dL (10.7-15.3); LYMPH % 12.2 % (8-40); MCH 27.4 pg (25.7-33.7); MCHC 33.1 g/dl (32.0-36.0); MEAN CELL VOLUME 82.7 fl (80-96); MEAN PLT VOLUME 7.6 fl (7.5-11.1); MONO % 5.3 % (3.8-10.2); NEUT % 81.3 % (42.8-82.8); PLATELET COUNT 333 10^3/uL (134-434); RBC 4.09 M/mm3 (3.60-5.2); RDW 15.3 % (11.6-15.6); WHITE BLOOD COUNT 13.9 K/mm3 (4.0-10.0)
[2022-12-20 13:29] LABS: ALBUMIN 2.2 g/dl (3.4-5.0); CALCIUM 7.9 mg/dL (8.5-10.1); MAGNESIUM 1.5 mg/dL (1.8-2.4)
[2022-12-20 13:33] LABS: CREATININE 1.5 mg/dL (0.55-1.3)
[2022-12-20 13:34] LABS: BILIRUBIN,TOTAL 0.6 mg/dL (0.2-1); TOT PROT 5.8 g/dl (6.4-8.2)
[2022-12-20] MEDS ORDERED: DEXTROSE 5%-NORMAL SALINE 1,000 ML IV SCH (14:02)
[2022-12-20] MEDS ORDERED: SODIUM CHLORIDE 1,000 ML IV STA (15:21)
[2022-12-20] MEDS: DEXTROSE 5%-NORMAL SALINE 1,000 ML IV SCH (15:21)
[2022-12-20] MEDS ORDERED: POTASSIUM CHLORIDE TABS 20 MEQ TABLET.ER (FP) PO SCH ×2 (15:30→15:36)
[2022-12-20] MEDS ORDERED: MAGNESIUM SULF 50% (8.12 MEQ/2 ML-1 GM VIAL) IVPB ONE (16:37)
[2022-12-20] MEDS: KCL 10 MEQ IVPB 10 MEQ/100 ML INFUS.BAG IVPB SCH ×3 (17:01→21:48)
[2022-12-20] MEDS: ACETAMINOPHEN 500 MG TABLET (FP) PO SCH (17:38)
[2022-12-20] MEDS: POTASSIUM CHLORIDE ORAL LIQUID 20 MEQ/15 ML PO SCH ×2 (17:39→23:14)
[2022-12-20 18:59] LABS: CALCIUM 7.8 mg/dL (8.5-10.1)
[2022-12-20 19:00] LABS: ALBUMIN 2.2 g/dl (3.4-5.0); BLOOD UREA NITROGEN 14.5 mg/dL (7-18); MAGNESIUM 1.6 mg/dL (1.8-2.4)
[2022-12-20 19:03] LABS: CREATININE 1.4 mg/dL (0.55-1.3)
[2022-12-20 19:06] LABS: TOT PROT 6.1 g/dl (6.4-8.2)
[2022-12-20] MEDS ORDERED: SODIUM CHLORIDE 500 ML IV STA (19:49)
[2022-12-20] MEDS ORDERED: MAGNESIUM OXIDE 400 MG TABLET (FP) PO ONE (19:54)
[2022-12-20] MEDS: IBUPROFEN 600 MG TABLET (FP) PO PRN (21:57)
[2022-12-20] MEDS ORDERED: POTASSIUM CHLORIDE ORAL LIQUID 20 MEQ/15 ML PO SCH (22:00)
[2022-12-20] MEDS: MAGNESIUM OXIDE 400 MG TABLET (FP) PO SCH (23:13)
[2022-12-21] MEDS: ACETAMINOPHEN 500 MG TABLET (FP) PO SCH ×5 (00:35→23:50)
[2022-12-21 02:25] LABS: POTASSIUM 3.8 mmol/L (3.5-5.1)
[2022-12-21 02:26] LABS: ALBUMIN 2.1 g/dl (3.4-5.0); BLOOD UREA NITROGEN 14.4 mg/dL (7-18); CALCIUM 7.9 mg/dL (8.5-10.1)
[2022-12-21 02:29] LABS: CREATININE 1.1 mg/dL (0.55-1.3)
[2022-12-21 02:31] LABS: BILIRUBIN,TOTAL 0.7 mg/dL (0.2-1); TOT PROT 5.8 g/dl (6.4-8.2)
[2022-12-21] MEDS: PIPERACILLIN/TAZOB 3.375 GM 3.375 GM in DEXTROSE 5%-WATER - 50 ML IVPB SCH ×3 (03:00→17:38)
[2022-12-21] MEDS: DEXTROSE 5%-NORMAL SALINE 1,000 ML IV SCH (05:39)
[2022-12-21] MEDS: GABAPENTIN 300 MG CAPSULE PO SCH ×3 (06:21→21:52)
[2022-12-21] MEDS: HEPARIN NA (PORCINE) 5,000 UNITS/ML 1ML VIAL SQ SCH ×3 (06:22→21:50)
[2022-12-21] MEDS: MAGNESIUM OXIDE 400 MG TABLET (FP) PO SCH ×2 (09:39→22:01)
[2022-12-21] MEDS: PANTOPRAZOLE 40 MG TABLET PO SCH (09:39)
[2022-12-21] MEDS: POTASSIUM CHLORIDE ORAL LIQUID 20 MEQ/15 ML PO SCH ×2 (09:39→21:51)
[2022-12-21 09:49] LABS: BASO % 0.5 % (0-2.0); EOS % 2.1 % (0-4.5); HEMATOCRIT 31.9 % (32.4-45.2); HEMOGLOBIN 10.7 GM/dL (10.7-15.3); LYMPH % 10.8 % (8-40); MCH 27.8 pg (25.7-33.7); MCHC 33.6 g/dl (32.0-36.0); MEAN CELL VOLUME 82.8 fl (80-96); MEAN PLT VOLUME 7.2 fl (7.5-11.1); MONO % 5.3 % (3.8-10.2); NEUT % 81.3 % (42.8-82.8); PLATELET COUNT 330 10^3/uL (134-434); RBC 3.85 M/mm3 (3.60-5.2); RDW 15.6 % (11.6-15.6); WHITE BLOOD COUNT 14.3 K/mm3 (4.0-10.0)
[2022-12-21 10:12] LABS: POTASSIUM 3.5 mmol/L (3.5-5.1)
[2022-12-21 10:19] LABS: ALBUMIN 2.2 g/dl (3.4-5.0); BLOOD UREA NITROGEN 15.6 mg/dL (7-18); CREATININE 1.2 mg/dL (0.55-1.3)
[2022-12-21 10:21] LABS: BILIRUBIN,TOTAL 0.7 mg/dL (0.2-1); CALCIUM 7.7 mg/dL (8.5-10.1); TOT PROT 5.8 g/dl (6.4-8.2)
[2022-12-21] MEDS: SCOPOLAMINE HYDROBROMIDE 1 PATCH PATCH.TD72 TD SCH (12:39)
[2022-12-21] MEDS ORDERED: DEXTROSE 5%-NORMAL SALINE 1,000 ML IV SCH (15:29)
[2022-12-21] MEDS: oxyCODONE HCL 5 MG TABLET PO PRN (18:28)
[2022-12-21] MEDS: IBUPROFEN 600 MG TABLET (FP) PO PRN (21:52)
[2022-12-21] MEDS: ONDANSETRON 4 MG/2 ML VIAL IVPUSH PRN (22:06)
[2022-12-21] MEDS: BENZOCAINE/MENTH/CETYLPYRD CL 1 EACH LOZENGE MM PRN (22:15)
[2022-12-22] MEDS: PIPERACILLIN/TAZOB 3.375 GM 3.375 GM in DEXTROSE 5%-WATER - 50 ML IVPB SCH ×3 (01:01→18:20)
[2022-12-22] MEDS: HEPARIN NA (PORCINE) 5,000 UNITS/ML 1ML VIAL SQ SCH ×4 (05:45→21:17)
[2022-12-22] MEDS: GABAPENTIN 300 MG CAPSULE PO SCH ×3 (05:48→21:07)
[2022-12-22] MEDS: ACETAMINOPHEN 500 MG TABLET (FP) PO SCH ×3 (05:48→22:19)
[2022-12-22] MEDS: ONDANSETRON 4 MG/2 ML VIAL IVPUSH PRN (05:50)
[2022-12-22] MEDS ORDERED: ACETAMINOPHEN 1000 MG/100 ML BAG IVPB ONE (06:20)
[2022-12-22 08:30] LABS: BASO % 0.3 % (0-2.0); EOS % 1.3 % (0-4.5); HEMATOCRIT 31.5 % (32.4-45.2); HEMOGLOBIN 10.6 GM/dL (10.7-15.3); MCHC 33.7 g/dl (32.0-36.0); MEAN CELL VOLUME 83.1 fl (80-96); MEAN PLT VOLUME 7.5 fl (7.5-11.1); NEUT % 84.4 % (42.8-82.8); PLATELET COUNT 358 10^3/uL (134-434); RBC 3.78 M/mm3 (3.60-5.2); RDW 15.9 % (11.6-15.6)
[2022-12-22 08:36] LABS: POTASSIUM 3.8 mmol/L (3.5-5.1)
[2022-12-22 08:39] LABS: ALBUMIN 2.2 g/dl (3.4-5.0); BLOOD UREA NITROGEN 14.3 mg/dL (7-18); CALCIUM 8.4 mg/dL (8.5-10.1); MAGNESIUM 1.9 mg/dL (1.8-2.4)
[2022-12-22 08:42] LABS: CREATININE 0.8 mg/dL (0.55-1.3)
[2022-12-22 08:44] LABS: BILIRUBIN,TOTAL 0.6 mg/dL (0.2-1); TOT PROT 6.1 g/dl (6.4-8.2)
[2022-12-22] MEDS ORDERED: DEXTROSE 5%-NORMAL SALINE 1,000 ML IV SCH ×2 (08:54→14:44)
[2022-12-22] MEDS ORDERED: PANTOPRAZOLE SODIUM 40 MG in SODIUM CHLORIDE 100 ML IVPB SCH (10:15)
[2022-12-22] MEDS: PANTOPRAZOLE SODIUM 40 MG VIAL IVPUSH SCH (10:22)
[2022-12-22] MEDS: PANTOPRAZOLE 40 MG TABLET PO SCH (10:23)
[2022-12-22] MEDS: POTASSIUM CHLORIDE ORAL LIQUID 20 MEQ/15 ML PO SCH (10:23)
[2022-12-22] MEDS: MAGNESIUM OXIDE 400 MG TABLET (FP) PO SCH ×3 (10:23→21:07)
[2022-12-22] MEDS: oxyCODONE HCL 5 MG TABLET PO PRN (11:57)
[2022-12-22 16:45] LABS: POTASSIUM 3.9 mmol/L (3.5-5.1)
[2022-12-22 16:47] LABS: CALCIUM 8.4 mg/dL (8.5-10.1)
[2022-12-22 16:48] LABS: ALBUMIN 2.2 g/dl (3.4-5.0)
[2022-12-22 16:51] LABS: CREATININE 0.7 mg/dL (0.55-1.3)
[2022-12-22 16:52] LABS: BILIRUBIN,TOTAL 0.5 mg/dL (0.2-1)
[2022-12-22] MEDS: POTASSIUM CHLORIDE TABS 20 MEQ TABLET.ER (FP) PO SCH (21:07)
[2022-12-23] MEDS: PIPERACILLIN/TAZOB 3.375 GM 3.375 GM in DEXTROSE 5%-WATER - 50 ML IVPB SCH ×3 (01:03→17:39)
[2022-12-23] MEDS: ACETAMINOPHEN 500 MG TABLET (FP) PO SCH ×4 (05:01→23:55)
[2022-12-23] MEDS: HEPARIN NA (PORCINE) 5,000 UNITS/ML 1ML VIAL SQ SCH ×4 (05:01→22:05)
[2022-12-23] MEDS: GABAPENTIN 300 MG CAPSULE PO SCH ×3 (05:11→21:58)
[2022-12-23 08:13] LABS: EPI CELLS 5 /uL (0-25.1); HYALINE CASTS 4 /uL (0-3.1); URINE APPEARANCE CLEAR; URINE BACTERIA 5 /uL (0-1359); URINE BILIRUBIN NEGATIVE (NEGATIVE); URINE COLOR YELLOW; URINE GLUCOSE (UA) NEGATIVE (NEGATIVE); URINE KETONE NEGATIVE (NEGATIVE); URINE LEUK ESTERASE NEGATIVE (NEGATIVE); URINE NITRITE NEGATIVE (NEGATIVE); URINE PROTEIN TRACE (NEGATIVE); URINE RBC 34 /uL (0-23.9); URINE UROBILINOGEN 0.2 mg/dL (0.2-1.0); URINE WBC 33 /uL (0-25.8)
[2022-12-23 08:57] LABS: YEAST PRESENT (NEGATIVE)
[2022-12-23 10:11] LABS: BASO % 1.1 % (0-2.0); EOS % 3.2 % (0-4.5); HEMATOCRIT 29.2 % (32.4-45.2); HEMOGLOBIN 10.2 GM/dL (10.7-15.3); LYMPH % 21.2 % (8-40); MCH 29.1 pg (25.7-33.7); MCHC 34.9 g/dl (32.0-36.0); MEAN CELL VOLUME 83.3 fl (80-96); MEAN PLT VOLUME 7.5 fl (7.5-11.1); MONO % 5.1 % (3.8-10.2); NEUT % 69.4 % (42.8-82.8); PLATELET COUNT 378 10^3/uL (134-434); RDW 15.5 % (11.6-15.6)
[2022-12-23 10:20] LABS: POTASSIUM 4.1 mmol/L (3.5-5.1)
[2022-12-23] MEDS: POTASSIUM CHLORIDE TABS 20 MEQ TABLET.ER (FP) PO SCH ×2 (10:24→21:58)
[2022-12-23] MEDS: PANTOPRAZOLE SODIUM 40 MG VIAL IVPUSH SCH (10:24)
[2022-12-23] MEDS: MAGNESIUM OXIDE 400 MG TABLET (FP) PO SCH ×2 (10:24→21:58)
[2022-12-23 10:27] LABS: ALBUMIN 2.1 g/dl (3.4-5.0); MAGNESIUM 1.6 mg/dL (1.8-2.4)
[2022-12-23 10:30] LABS: BLOOD UREA NITROGEN 8.6 mg/dL (7-18); CALCIUM 7.9 mg/dL (8.5-10.1); CREATININE 0.7 mg/dL (0.55-1.3)
[2022-12-23 10:31] LABS: BILIRUBIN,TOTAL 0.5 mg/dL (0.2-1); TOT PROT 5.9 g/dl (6.4-8.2)
[2022-12-23] MEDS ORDERED: MAGNESIUM SULF 50% (8.12 MEQ/2 ML-1 GM VIAL) IVPB ONE (16:41)
[2022-12-23] MEDS ORDERED: DEXTROSE 5%-NORMAL SALINE 1,000 ML IV SCH (16:42)
[2022-12-23] MEDS: oxyCODONE HCL 5 MG TABLET PO PRN (22:02)
[2022-12-24] MEDS: PIPERACILLIN/TAZOB 3.375 GM 3.375 GM in DEXTROSE 5%-WATER - 50 ML IVPB SCH ×2 (02:03→11:35)
[2022-12-24] MEDS: ACETAMINOPHEN 500 MG TABLET (FP) PO SCH ×4 (06:22→22:52)
[2022-12-24] MEDS: GABAPENTIN 300 MG CAPSULE PO SCH ×3 (06:23→22:53)
[2022-12-24] MEDS: HEPARIN NA (PORCINE) 5,000 UNITS/ML 1ML VIAL SQ SCH ×4 (06:23→23:13)
[2022-12-24 09:25] LABS: EOS % 3.9 % (0-4.5); HEMATOCRIT 27.3 % (32.4-45.2); HEMOGLOBIN 9.6 GM/dL (10.7-15.3); LYMPH % 24.5 % (8-40); MCHC 35.3 g/dl (32.0-36.0); MEAN CELL VOLUME 82.3 fl (80-96); MEAN PLT VOLUME 7.4 fl (7.5-11.1); NEUT % 63.6 % (42.8-82.8); PLATELET COUNT 344 10^3/uL (134-434); RBC 3.31 M/mm3 (3.60-5.2); RDW 15.7 % (11.6-15.6); WHITE BLOOD COUNT 6.1 K/mm3 (4.0-10.0)
[2022-12-24 09:52] LABS: POTASSIUM 4.2 mmol/L (3.5-5.1)
[2022-12-24 09:55] LABS: CALCIUM 7.8 mg/dL (8.5-10.1)
[2022-12-24 09:56] LABS: BLOOD UREA NITROGEN 4.4 mg/dL (7-18); MAGNESIUM 1.6 mg/dL (1.8-2.4)
[2022-12-24 09:59] LABS: CREATININE 0.6 mg/dL (0.55-1.3)
[2022-12-24 10:00] LABS: BILIRUBIN,TOTAL 0.8 mg/dL (0.2-1)
[2022-12-24 10:01] LABS: TOT PROT 5.5 g/dl (6.4-8.2)
[2022-12-24] MEDS: PANTOPRAZOLE 40 MG TABLET PO SCH (11:20)
[2022-12-24] MEDS ORDERED: FUROSEMIDE 40 MG TABLET (FP) PO ONE (11:20)
[2022-12-24] MEDS: POTASSIUM CHLORIDE TABS 20 MEQ TABLET.ER (FP) PO SCH ×2 (11:21→22:53)
[2022-12-24] MEDS: MAGNESIUM OXIDE 400 MG TABLET (FP) PO SCH ×3 (11:21→22:54)
[2022-12-24] MEDS: SCOPOLAMINE HYDROBROMIDE 1 PATCH PATCH.TD72 TD SCH (12:49)
[2022-12-24] MEDS: IBUPROFEN 600 MG TABLET (FP) PO PRN (13:40)
[2022-12-25] MEDS: GABAPENTIN 300 MG CAPSULE PO SCH ×3 (05:28→22:02)
[2022-12-25] MEDS: ACETAMINOPHEN 500 MG TABLET (FP) PO SCH ×4 (05:28→22:55)
[2022-12-25] MEDS: HEPARIN NA (PORCINE) 5,000 UNITS/ML 1ML VIAL SQ SCH ×3 (05:28→22:07)
[2022-12-25] MEDS ORDERED: METOCLOPRAMIDE HCL INJECTION 10 MG/2 ML VIAL IVPUSH SCH (10:15)
[2022-12-25 10:21] LABS: BASO % 0.6 % (0-2.0); EOS % 2.1 % (0-4.5); HEMATOCRIT 33.6 % (32.4-45.2); LYMPH % 18.8 % (8-40); MCH 29.2 pg (25.7-33.7); MCHC 35.7 g/dl (32.0-36.0); MEAN CELL VOLUME 81.9 fl (80-96); MEAN PLT VOLUME 7.3 fl (7.5-11.1); MONO % 6.4 % (3.8-10.2); NEUT % 72.1 % (42.8-82.8); PLATELET COUNT 435 10^3/uL (134-434); RDW 15.5 % (11.6-15.6); WHITE BLOOD COUNT 6.8 K/mm3 (4.0-10.0)
[2022-12-25 10:45] LABS: POTASSIUM 4.4 mmol/L (3.5-5.1)
[2022-12-25 10:48] LABS: CALCIUM 8.9 mg/dL (8.5-10.1)
[2022-12-25 10:49] LABS: BLOOD UREA NITROGEN 4.5 mg/dL (7-18); MAGNESIUM 1.5 mg/dL (1.8-2.4)
[2022-12-25 10:52] LABS: CREATININE 0.6 mg/dL (0.55-1.3)
[2022-12-25 10:53] LABS: BILIRUBIN,TOTAL 0.7 mg/dL (0.2-1)
[2022-12-25 10:55] LABS: TOT PROT 6.8 g/dl (6.4-8.2)
[2022-12-25 10:57] LABS: ALBUMIN 2.5 g/dl (3.4-5.0)
[2022-12-25] MEDS ORDERED: MAGNESIUM SULF 50% (8.12 MEQ/2 ML-1 GM VIAL) IVPB ONE (11:14)
[2022-12-25] MEDS: MAGNESIUM OXIDE 400 MG TABLET (FP) PO SCH ×3 (13:44→22:54)
[2022-12-25] MEDS: POTASSIUM CHLORIDE TABS 20 MEQ TABLET.ER (FP) PO SCH ×2 (13:44→22:53)
[2022-12-25] MEDS: PANTOPRAZOLE 40 MG TABLET PO SCH (13:51)
[2022-12-25] MEDS: METOCLOPRAMIDE HCL 10 MG TABLET (FP) PO SCH (16:52)
[2022-12-26 00:09] VITALS: RESP 20
[2022-12-26] MEDS: ACETAMINOPHEN 500 MG TABLET (FP) PO SCH ×4 (06:26→22:48)
[2022-12-26] MEDS: HEPARIN NA (PORCINE) 5,000 UNITS/ML 1ML VIAL SQ SCH ×3 (06:27→22:45)
[2022-12-26] MEDS: GABAPENTIN 300 MG CAPSULE PO SCH ×3 (06:27→22:49)
[2022-12-26] MEDS: METOCLOPRAMIDE HCL 10 MG TABLET (FP) PO SCH ×3 (06:28→17:40)
[2022-12-26] MEDS: AMINO ACIDS/PROTEIN HYDROLYS 30 ML LIQUID.PKT PO SCH (09:40)
[2022-12-26] MEDS: PANTOPRAZOLE 40 MG TABLET PO SCH (09:41)
[2022-12-26] MEDS: MAGNESIUM OXIDE 400 MG TABLET (FP) PO SCH ×2 (09:41→22:45)
[2022-12-26] MEDS: POTASSIUM CHLORIDE TABS 20 MEQ TABLET.ER (FP) PO SCH ×2 (09:41→22:45)
[2022-12-27] MEDS: ACETAMINOPHEN 500 MG TABLET (FP) PO SCH ×4 (06:31→22:03)
[2022-12-27] MEDS: METOCLOPRAMIDE HCL 10 MG TABLET (FP) PO SCH ×3 (06:31→16:00)
[2022-12-27] MEDS: GABAPENTIN 300 MG CAPSULE PO SCH ×3 (06:31→21:49)
[2022-12-27] MEDS: HEPARIN NA (PORCINE) 5,000 UNITS/ML 1ML VIAL SQ SCH ×3 (06:32→21:49)
[2022-12-27] MEDS: POTASSIUM CHLORIDE TABS 20 MEQ TABLET.ER (FP) PO SCH ×2 (09:42→21:49)
[2022-12-27] MEDS: AMINO ACIDS/PROTEIN HYDROLYS 30 ML LIQUID.PKT PO SCH (09:42)
[2022-12-27] MEDS: PANTOPRAZOLE 40 MG TABLET PO SCH (09:42)
[2022-12-27] MEDS: MAGNESIUM OXIDE 400 MG TABLET (FP) PO SCH ×2 (09:43→21:49)
[2022-12-27] MEDS: SCOPOLAMINE HYDROBROMIDE 1 PATCH PATCH.TD72 TD SCH (13:58)
[2022-12-27 14:54] VITALS: TEMP 98.8
[2022-12-28] MEDS: HEPARIN NA (PORCINE) 5,000 UNITS/ML 1ML VIAL SQ SCH ×2 (00:01→05:08)
[2022-12-28] MEDS: ACETAMINOPHEN 500 MG TABLET (FP) PO SCH ×2 (05:07→10:21)
[2022-12-28] MEDS: GABAPENTIN 300 MG CAPSULE PO SCH (05:08)
[2022-12-28] MEDS: METOCLOPRAMIDE HCL 10 MG TABLET (FP) PO SCH ×2 (06:10→10:21)
[2022-12-28 06:20] VITALS: BP 136/78; PULSE 91
[2022-12-28] MEDS: AMINO ACIDS/PROTEIN HYDROLYS 30 ML LIQUID.PKT PO SCH (08:33)
[2022-12-28] MEDS: PANTOPRAZOLE 40 MG TABLET PO SCH (10:21)
[2022-12-28] MEDS: POTASSIUM CHLORIDE TABS 20 MEQ TABLET.ER (FP) PO SCH (10:21)
[2022-12-28] MEDS: MAGNESIUM OXIDE 400 MG TABLET (FP) PO SCH (10:21)
== END 2022-12-28 11:31 | DRG 331 ==
LOC: JER 14:27 → JERBED 18:36 → J8W 23:08
PROVIDERS: ADMIT Internal Medicine; ATTEND Nurse Practitioner Acute Care
PROC: 0D1N0ZP Bypass Sigmoid Colon to Rectum, Open Approach (ICD-10-PCS; 2022-12-18)
PROC: 0W9J8ZZ Drainage of Pelvic Cavity, Via Natural or Artificial Opening Endoscopic (ICD-10-PCS; 2022-12-18)
PROC: 0DBN0ZZ Excision of Sigmoid Colon, Open Approach (ICD-10-PCS; principal; 2022-12-18 12:00)
DX: K57.20 Diverticulitis of large intestine with perforation and abscess without bleeding (principal); E83.42 Hypomagnesemia; E87.6 Hypokalemia; I10 Essential (primary) hypertension; K59.00 Constipation, unspecified; E11.9 Type 2 diabetes mellitus without complications; E66.9 Obesity, unspecified; Z68.33 Body mass index [BMI] 33.0-33.9, adult; R10.32 Left lower quadrant pain; D72.829 Elevated white blood cell count, unspecified
CPT/HCPCS: 36415; 71045-TC-FY; 74177-TC; 80053; 81003; 83605; 83735; 84100; 85025; 85027; 85610; 85730; 86140; 86850; 86900; 86901; 87040; 87086; 88305-TC; 88307-TC; 93005; 93010; 93306-TC; 94010; 94760; 97116-GP; 97161-GP; 99285-25; C9803-CS; J1644; Q9967; U0003; U0005

== ENCOUNTER 2023-01-08 16:04 | Inpatient (IN) | payer OTHER ==
[2023-01-08] MEDS ORDERED: FAMOTIDINE 10 MG/ML VIAL IVPB ONE (16:48)
[2023-01-08] MEDS ORDERED: PANTOPRAZOLE SODIUM 40 MG/100 ML BAG IVPB ONE (16:48)
[2023-01-08] MEDS ORDERED: ACETAMINOPHEN INJECTION 100 ML IVPB ONE (16:48)
[2023-01-08] MEDS ORDERED: ONDANSETRON 4 MG/2 ML VIAL ONE (16:48)
[2023-01-08] MEDS ORDERED: morphine SULFATE 4 MG/ML VIAL ONE ×2 (16:51→19:34)
[2023-01-08] MEDS ORDERED: SIMETHICONE 80 MG TAB.CHEW (FP) PO ONE (17:04)
[2023-01-08] MEDS ORDERED: ONDANSETRON 4 MG/2 ML VIAL IVPUSH ONE (17:12)
[2023-01-08] MEDS ORDERED: FAMOTIDINE 20 MG/50 ML IVPB 20 MG/50 ML MG IVPB ONE (17:12)
[2023-01-08] MEDS ORDERED: ACETAMINOPHEN 1000 MG/100 ML BAG IVPB ONE (17:12)
[2023-01-08] MEDS ORDERED: morphine SULFATE 4 MG/ML VIAL IVPUSH ONE ×2 (17:12→19:05)
[2023-01-08] MEDS ORDERED: LACTATED RINGERS SOLUTION 1000 ML INFUS.BAG IV ONE (17:12)
[2023-01-08] MEDS ORDERED: PANTOPRAZOLE SODIUM 40 MG VIAL IVPUSH ONE (17:13)
[2023-01-08] MEDS ORDERED: SIMETHICONE 80 MG TAB.CHEW (FP) ONE (17:22)
[2023-01-08 17:47] LABS: BASO % 0.9 % (0-2.0); HEMATOCRIT 36.9 % (32.4-45.2); HEMOGLOBIN 12.6 GM/dL (10.7-15.3); MCH 28.3 pg (25.7-33.7); MCHC 34.2 g/dl (32.0-36.0); MEAN CELL VOLUME 82.8 fl (80-96); MONO % 6.7 % (3.8-10.2); NEUT % 71.4 % (42.8-82.8); PLATELET COUNT 426 10^3/uL (134-434); RBC 4.45 M/mm3 (3.60-5.2); RDW 16.5 % (11.6-15.6); WHITE BLOOD COUNT 6.6 K/mm3 (4.0-10.0)
[2023-01-08 17:50] LABS: VENOUS BASE EXCESS 1.8 mmol/L (-2-2); VENOUS PCO2 34.9 mmHg (38-52); VENOUS PH 7.474 (7.310-7.410)
[2023-01-08 17:53] LABS: INR 1.14 (0.83-1.09); PROTHROMBIN TIME (PATIENT) 13.2 SEC (9.7-13.0)
[2023-01-08 17:56] LABS: ACTIVATED PTT 29.9 SECONDS (25.2-36.5)
[2023-01-08] MEDS ORDERED: LORazepam 2 MG TABLET PO ONE (18:04)
[2023-01-08 18:05] LABS: POTASSIUM 4.1 mmol/L (3.5-5.1)
[2023-01-08 18:07] LABS: CALCIUM 9.3 mg/dL (8.5-10.1)
[2023-01-08 18:08] LABS: BLOOD UREA NITROGEN 17.4 mg/dL (7-18)
[2023-01-08 18:12] LABS: BILIRUBIN,TOTAL 0.8 mg/dL (0.2-1); TOT PROT 7.1 g/dl (6.4-8.2)
[2023-01-08] MEDS ORDERED: LORazepam 1 MG TABLET ONE (18:41)
[2023-01-08 19:40] LABS: MAGNESIUM 1.7 mg/dL (1.8-2.4)
[2023-01-08 20:07] LABS: URINE APPEARANCE CLEAR; URINE BILIRUBIN NEGATIVE (NEGATIVE); URINE COLOR YELLOW; URINE GLUCOSE (UA) NEGATIVE (NEGATIVE); URINE KETONE TRACE (NEGATIVE); URINE LEUK ESTERASE NEGATIVE (NEGATIVE); URINE NITRITE NEGATIVE (NEGATIVE); URINE PROTEIN NEGATIVE (NEGATIVE); URINE UROBILINOGEN 0.2 mg/dL (0.2-1.0)
[2023-01-09] MEDS ORDERED: LACTULOSE 20 GM/30 ML UDC (FOR ORAL USE ONLY) PO ONE (00:49)
[2023-01-09] MEDS ORDERED: POLYETHYLENE GLYCOL (HEALTHYLAX) 3350 17 GM PACKET PO SCH (01:00)
[2023-01-09] MEDS ORDERED: VANCOMYCIN 1,000 MG in DEXTROSE 5%-WATER - 250 ML IVPB ONE (01:43)
[2023-01-09] MEDS ORDERED: PIPERACILLIN/TAZOB 3.375 GM 3.375 GM in DEXTROSE 5%-WATER - 50 ML IVPB ONE (02:44)
[2023-01-09] MEDS ORDERED: PIPERACILLIN/TAZOB 3.375 GM 3.375 GM/50 ML BAG IVPB ONE (02:46)
[2023-01-09] MEDS ORDERED: MAGNESIUM SULF 50% (8.12 MEQ/2 ML-1 GM VIAL) IVPB ONE (03:15)
[2023-01-09] MEDS ORDERED: MAGNESIUM SULFATE IN WATER 2 GM/50 ML IVPB IVPB ONE (03:29)
[2023-01-09] MEDS ORDERED: VANCOMYCIN PREMIX 1.75 GM 1,750 MG/350 ML PIGGYBACK IVPB ONE (04:00)
[2023-01-09] MEDS ORDERED: ACETAMINOPHEN 1000 MG/100 ML BAG IVPB PRN (04:26)
[2023-01-09 05:09] VITALS: BMI 30.2
[2023-01-09 08:20] LABS: POTASSIUM 3.3 mmol/L (3.5-5.1)
[2023-01-09 08:25] LABS: ALBUMIN 2.5 g/dl (3.4-5.0); BLOOD UREA NITROGEN 13.9 mg/dL (7-18); CALCIUM 8.2 mg/dL (8.5-10.1)
[2023-01-09 08:26] LABS: EOS % 3.9 % (0-4.5); HEMATOCRIT 35.9 % (32.4-45.2); HEMOGLOBIN 12.1 GM/dL (10.7-15.3); LYMPH % 29.5 % (8-40); MCH 28.4 pg (25.7-33.7); MCHC 33.8 g/dl (32.0-36.0); MEAN PLT VOLUME 8.5 fl (7.5-11.1); MONO % 6.9 % (3.8-10.2); NEUT % 58.7 % (42.8-82.8); PLATELET COUNT 332 10^3/uL (134-434); RBC 4.27 M/mm3 (3.60-5.2); RDW 16.2 % (11.6-15.6); WHITE BLOOD COUNT 8.1 K/mm3 (4.0-10.0)
[2023-01-09 08:29] LABS: CREATININE 0.9 mg/dL (0.55-1.3); PHOSPHOROUS 4.4 mg/dL (2.5-4.9)
[2023-01-09 08:31] LABS: BILIRUBIN,TOTAL 0.8 mg/dL (0.2-1)
[2023-01-09] MEDS: KCL 10 MEQ IVPB 10 MEQ/100 ML INFUS.BAG IVPB SCH ×3 (09:39→11:31)
[2023-01-09] MEDS ORDERED: PIPERACILLIN/TAZOB 3.375 GM 3.375 GM in DEXTROSE 5%-WATER - 50 ML IVPB SCH (10:00)
[2023-01-09] MEDS: LACTATED RINGERS SOLUTION 1,000 ML/1,000 ML INFUS.BAG IV SCH (10:03)
[2023-01-09] MEDS ORDERED: MIDAZOLAM HCL 2 MG/2 ML SINGLE DOSE VIAL ONE (11:40)
[2023-01-09] MEDS ORDERED: FENTANYL CITRATE/PF 50 MCG/ML VIAL ONE ×2 (11:40→12:00)
[2023-01-09] MEDS ORDERED: FENTANYL CITRATE/PF 50 MCG/ML VIAL IVPUSH ONE (12:34)
[2023-01-09] MEDS ORDERED: SODIUM CHLORIDE 500 ML IV ONE (12:34)
[2023-01-09] MEDS ORDERED: MIDAZOLAM HCL 2 MG/2 ML SINGLE DOSE VIAL IVPUSH ONE ×2 (12:34→12:47)
[2023-01-09] MEDS ORDERED: PIPERACILLIN/TAZOBACTAM 3.375 GM VIAL IVPB ONE (17:25)
[2023-01-09] MEDS: POTASSIUM CHLORIDE TABS 20 MEQ TABLET.ER (FP) PO SCH (17:36)
[2023-01-09] MEDS: PIPERACILLIN/TAZOB 3.375 GM 3.375 GM in DEXTROSE 5%-WATER - 50 ML IVPB SCH (17:37)
[2023-01-09] MEDS: SENNOSIDES 8.6MG TABLET (FP) PO SCH (21:44)
[2023-01-09] MEDS: POLYETHYLENE GLYCOL (HEALTHYLAX) 3350 17 GM PACKET PO SCH (21:45)
[2023-01-10] MEDS: PIPERACILLIN/TAZOB 3.375 GM 3.375 GM in DEXTROSE 5%-WATER - 50 ML IVPB SCH ×3 (02:24→18:47)
[2023-01-10] MEDS ORDERED: VANCOMYCIN/WATER 1250 MG 1,250 MG/250 ML BAG IVPB SCH (04:00)
[2023-01-10 08:10] LABS: POTASSIUM 4.6 mmol/L (3.5-5.1)
[2023-01-10 08:13] LABS: CALCIUM 8.9 mg/dL (8.5-10.1)
[2023-01-10 08:14] LABS: BLOOD UREA NITROGEN 11.2 mg/dL (7-18); MAGNESIUM 1.9 mg/dL (1.8-2.4)
[2023-01-10 08:17] LABS: PHOSPHOROUS 3.8 mg/dL (2.5-4.9)
[2023-01-10 08:19] LABS: HEMATOCRIT 33.6 % (32.4-45.2); HEMOGLOBIN 11.6 GM/dL (10.7-15.3); MCH 28.8 pg (25.7-33.7); MCHC 34.3 g/dl (32.0-36.0); MEAN CELL VOLUME 83.8 fl (80-96); MEAN PLT VOLUME 8.6 fl (7.5-11.1); PLATELET COUNT 367 10^3/uL (134-434); RBC 4.01 M/mm3 (3.60-5.2); WHITE BLOOD COUNT 5.7 K/mm3 (4.0-10.0)
[2023-01-10] MEDS ORDERED: ACETAMINOPHEN 1000 MG/100 ML BAG IVPB PRN (08:26)
[2023-01-10] MEDS ORDERED: PIPERACILLIN/TAZOBACTAM 3.375 GM VIAL IVPB ONE (08:45)
[2023-01-10] MEDS: SENNOSIDES 8.6MG TABLET (FP) PO SCH ×2 (09:58→21:51)
[2023-01-10] MEDS: POTASSIUM CHLORIDE TABS 20 MEQ TABLET.ER (FP) PO SCH (09:58)
[2023-01-10] MEDS: POLYETHYLENE GLYCOL (HEALTHYLAX) 3350 17 GM PACKET PO SCH ×2 (09:58→21:51)
[2023-01-10] MEDS ORDERED: VANCOMYCIN 1 GM in D5W (PRE-DOCKED) 1,000 MG/250 ML (RESTRICTED TO ID ONLY IVPB SCH (10:00)
[2023-01-10] MEDS: LACTATED RINGERS SOLUTION 1,000 ML/1,000 ML INFUS.BAG IV SCH (10:00)
[2023-01-10] MEDS ORDERED: VANCOMYCIN/WATER 1,250 MG/250 ML BAG (RESTRICTED TO ID ONLY) IVPB SCH (10:00)
[2023-01-11] MEDS: PIPERACILLIN/TAZOB 3.375 GM 3.375 GM in DEXTROSE 5%-WATER - 50 ML IVPB SCH ×3 (01:25→17:19)
[2023-01-11] MEDS: POLYETHYLENE GLYCOL (HEALTHYLAX) 3350 17 GM PACKET PO SCH ×2 (09:07→21:04)
[2023-01-11] MEDS: SENNOSIDES 8.6MG TABLET (FP) PO SCH ×2 (09:09→21:04)
[2023-01-11] MEDS: HYDROmorphone HCl 2 MG/ML VIAL IVPB PRN ×2 (12:07→15:19)
[2023-01-11] MEDS ORDERED: DAPTOMYCIN 500 MG in SODIUM CHLORIDE 50 ML IVPB SCH (13:00)
[2023-01-11] MEDS: ONDANSETRON 4 MG/2 ML VIAL IVPUSH PRN ×2 (17:18→22:20)
[2023-01-12] MEDS: PIPERACILLIN/TAZOB 3.375 GM 3.375 GM in DEXTROSE 5%-WATER - 50 ML IVPB SCH ×3 (01:07→17:48)
[2023-01-12] MEDS: POLYETHYLENE GLYCOL (HEALTHYLAX) 3350 17 GM PACKET PO SCH ×3 (08:17→21:19)
[2023-01-12] MEDS: SENNOSIDES 8.6MG TABLET (FP) PO SCH ×3 (08:17→21:19)
[2023-01-12] MEDS: morphine SULFATE 4 MG/ML VIAL IVPUSH PRN ×2 (08:32→16:19)
[2023-01-13] MEDS: PIPERACILLIN/TAZOB 3.375 GM 3.375 GM in DEXTROSE 5%-WATER - 50 ML IVPB SCH ×2 (01:16→09:19)
[2023-01-13 05:46] VITALS: RESP 20
[2023-01-13 08:31] LABS: BASO % 1.2 % (0-2.0); EOS % 5.2 % (0-4.5); HEMATOCRIT 34.5 % (32.4-45.2); HEMOGLOBIN 11.9 GM/dL (10.7-15.3); LYMPH % 31.9 % (8-40); MCH 28.9 pg (25.7-33.7); MCHC 34.4 g/dl (32.0-36.0); MEAN CELL VOLUME 83.9 fl (80-96); MEAN PLT VOLUME 8.3 fl (7.5-11.1); MONO % 8.3 % (3.8-10.2); NEUT % 53.4 % (42.8-82.8); PLATELET COUNT 316 10^3/uL (134-434); RBC 4.11 M/mm3 (3.60-5.2); RDW 16.7 % (11.6-15.6); WHITE BLOOD COUNT 4.8 K/mm3 (4.0-10.0)
[2023-01-13 08:46] LABS: POTASSIUM 3.9 mmol/L (3.5-5.1)
[2023-01-13 08:50] LABS: ALBUMIN 2.8 g/dl (3.4-5.0); BLOOD UREA NITROGEN 8.1 mg/dL (7-18); MAGNESIUM 1.7 mg/dL (1.8-2.4)
[2023-01-13 08:53] LABS: CREATININE 0.9 mg/dL (0.55-1.3); PHOSPHOROUS 3.4 mg/dL (2.5-4.9)
[2023-01-13 08:54] LABS: BILIRUBIN,TOTAL 0.8 mg/dL (0.2-1); TOT PROT 6.6 g/dl (6.4-8.2)
[2023-01-13] MEDS: POLYETHYLENE GLYCOL (HEALTHYLAX) 3350 17 GM PACKET PO SCH ×2 (09:19→21:08)
[2023-01-13] MEDS: SENNOSIDES 8.6MG TABLET (FP) PO SCH ×2 (09:19→21:08)
[2023-01-13] MEDS: ONDANSETRON 4 MG/2 ML VIAL IVPUSH PRN (09:23)
[2023-01-13] MEDS: morphine SULFATE 4 MG/ML VIAL IVPUSH PRN (11:23)
[2023-01-13] MEDS: LINEZOLID 600 MG TABLET (RESTRICTED TO ID) PO SCH ×2 (13:58→21:08)
[2023-01-13] MEDS ORDERED: MAGNESIUM 2GM/50ML STERILE WATER IVPB IVPB ONE (15:13)
[2023-01-13] MEDS: AMOX TR/POT CLAV 875MG/125MG TABLETS (FP) PO SCH (16:57)
[2023-01-13] MEDS ORDERED: LINEZOLID 600 MG TABLET (RESTRICTED TO ID) PO SCH (22:00)
[2023-01-14] MEDS ORDERED: SIMETHICONE 80 MG TAB.CHEW (FP) PO ONE (07:00)
[2023-01-14] MEDS: AMOX TR/POT CLAV 875MG/125MG TABLETS (FP) PO SCH (07:49)
[2023-01-14 10:59] VITALS: BP 124/78; PULSE 86; TEMP 98.2
== END 2023-01-14 11:56 | disposition home health service (06) | DRG 863 ==
LOC: JER 16:04 → JERBED 18:19 → J6S 01-09 04:47
PROVIDERS: ADMIT Internal Medicine; ATTEND Internal Medicine
PROC: 0D9P3ZX Drainage of Rectum, Percutaneous Approach, Diagnostic (ICD-10-PCS; principal; 2023-01-09)
DX: T81.49XA Infection following a procedure, other surgical site, initial encounter (principal); K61.1 Rectal abscess; N39.0 Urinary tract infection, site not specified; I10 Essential (primary) hypertension; K57.90 Diverticulosis of intestine, part unspecified, without perforation or abscess without bleeding; D25.9 Leiomyoma of uterus, unspecified; K59.00 Constipation, unspecified; Y83.8 Other surgical procedures as the cause of abnormal reaction of the patient, or of later complication, without mention of misadventure at the time of the procedure; E87.6 Hypokalemia; B96.29 Other Escherichia coli [E. coli] as the cause of diseases classified elsewhere; E66.8 Other obesity; Z68.30 Body mass index [BMI] 30.0-30.9, adult
CPT/HCPCS: 0241U-QW; 10030; 36415; 71045-TC-FY; 72193-TC; 74177-TC; 80048; 80053; 81003; 82803; 83036; 83605; 83690; 83735; 84100; 85025; 85027; 85610; 85651; 85730; 86140; 86850; 86900; 86901; 87040; 87070; 87075; 87086; 87102; 87116; 87186; 87205; 87206; 87210; 93005; 93010; 99285-25; J3370; Q9967

== ENCOUNTER 2023-01-17 01:31 | Inpatient (IN) | payer OTHER ==
[2023-01-17] MEDS ORDERED: morphine CARPU-JECT 4 MG/1 ML DISP.SYRIN IVPUSH ONE ×3 (02:14→03:25)
[2023-01-17] MEDS ORDERED: SODIUM CHLORIDE 0.9% 500 ML INFUS.BAG IV ONE ×2 (02:19→08:20)
[2023-01-17] MEDS ORDERED: morphine SULFATE 4 MG/ML VIAL ONE ×2 (02:30→03:25)
[2023-01-17 02:50] LABS: BASO % 1.5 % (0-2.0); EOS % 1.3 % (0-4.5); HEMATOCRIT 37.4 % (32.4-45.2); HEMOGLOBIN 13.1 GM/dL (10.7-15.3); LYMPH % 41.5 % (8-40); MCH 28.9 pg (25.7-33.7); MCHC 35.1 g/dl (32.0-36.0); MEAN CELL VOLUME 82.4 fl (80-96); MEAN PLT VOLUME 7.8 fl (7.5-11.1); MONO % 8.6 % (3.8-10.2); NEUT % 47.1 % (42.8-82.8); PLATELET COUNT 321 10^3/uL (134-434); RBC 4.54 M/mm3 (3.60-5.2); RDW 16.5 % (11.6-15.6); WHITE BLOOD COUNT 4.7 K/mm3 (4.0-10.0)
[2023-01-17 03:06] LABS: INR 1.11 (0.83-1.09); PROTHROMBIN TIME (PATIENT) 12.9 SEC (9.7-13.0)
[2023-01-17 03:07] LABS: POTASSIUM 3.6 mmol/L (3.5-5.1)
[2023-01-17 03:09] LABS: ACTIVATED PTT 28.9 SECONDS (25.2-36.5)
[2023-01-17 03:11] LABS: ALBUMIN 2.8 g/dl (3.4-5.0); CALCIUM 9.1 mg/dL (8.5-10.1); MAGNESIUM 1.1 mg/dL (1.8-2.4)
[2023-01-17 03:12] LABS: BLOOD UREA NITROGEN 8.3 mg/dL (7-18)
[2023-01-17 03:15] LABS: CREATININE 1.1 mg/dL (0.55-1.3)
[2023-01-17 03:16] LABS: BILIRUBIN,TOTAL 0.7 mg/dL (0.2-1); TOT PROT 6.7 g/dl (6.4-8.2)
[2023-01-17] MEDS ORDERED: MAGNESIUM SULF 50% (8.12 MEQ/2 ML-1 GM VIAL) IVPB ONE (03:20)
[2023-01-17] MEDS ORDERED: ONDANSETRON 4 MG/2 ML VIAL IVPUSH ONE (03:23)
[2023-01-17] MEDS ORDERED: ONDANSETRON 4 MG/2 ML VIAL ONE ×2 (04:17→14:33)
[2023-01-17] MEDS ORDERED: MAGNESIUM SULFATE IN WATER 2 GM/50 ML IVPB IVPB ONE (04:17)
[2023-01-17] MEDS ORDERED: PIPERACILLIN/TAZOB 4.5 GM 4.5 GM in DEXTROSE 5%-WATER 100 ML IVPB ONE (05:01)
[2023-01-17] MEDS ORDERED: PIPERACILLIN/TAZOB 4.5 GM 4.5 GM/100 ML BAG IVPB ONE (05:04)
[2023-01-17 06:44] LABS: PH,URINE 7.5 (5.0-8.0); URINE APPEARANCE CLEAR; URINE BILIRUBIN NEGATIVE (NEGATIVE); URINE COLOR YELLOW; URINE GLUCOSE (UA) NEGATIVE (NEGATIVE); URINE KETONE TRACE (NEGATIVE); URINE LEUK ESTERASE NEGATIVE (NEGATIVE); URINE NITRITE NEGATIVE (NEGATIVE); URINE PROTEIN NEGATIVE (NEGATIVE); URINE UROBILINOGEN 0.2 mg/dL (0.2-1.0)
[2023-01-17 08:09] LABS: LACTIC ACID 3.5 mmol/L (0.4-2.0)
[2023-01-17] MEDS: SODIUM CHLORIDE 1,000 ML IV SCH ×2 (10:00→16:10)
[2023-01-17] MEDS ORDERED: ACETAMINOPHEN 1000 MG/100 ML BAG IVPB PRN (11:43)
[2023-01-17] MEDS ORDERED: TRIMETHOBENZAMIDE HCL 200MG/2ML INJ IM ONE (14:36)
[2023-01-17] MEDS ORDERED: TRIMETHOBENZAMIDE HCL 200MG/2ML INJ IM PRN (14:45)
[2023-01-17] MEDS ORDERED: ACETAMINOPHEN INJECTION 100 ML IVPB ONE (15:42)
[2023-01-17] MEDS: SIMETHICONE 80 MG TAB.CHEW (FP) PO SCH ×2 (18:22→21:17)
[2023-01-17] MEDS: CEFTRIAXONE 1 GM in DEXTROSE 5%-WATER - 50 ML IVPB SCH (21:22)
[2023-01-17] MEDS: LINEZOLID 600 MG PREMIX BAG 600 MG/300 ML BAG IVPB SCH (23:13)
[2023-01-18] MEDS: FAMOTIDINE 20 MG/50 ML IVPB 20 MG/50 ML MG IVPB SCH ×3 (00:37→21:57)
[2023-01-18] MEDS: SIMETHICONE 80 MG TAB.CHEW (FP) PO SCH ×6 (00:37→21:56)
[2023-01-18] MEDS: LINEZOLID 600 MG PREMIX BAG 600 MG/300 ML BAG IVPB SCH ×5 (09:40→20:26)
[2023-01-18] MEDS: CEFTRIAXONE 1 GM in DEXTROSE 5%-WATER - 50 ML IVPB SCH (11:04)
[2023-01-18 12:34] LABS: HEMATOCRIT 37.2 % (32.4-45.2); HEMOGLOBIN 12.4 GM/dL (10.7-15.3); LYMPH % 35.8 % (8-40); MCHC 33.4 g/dl (32.0-36.0); MEAN CELL VOLUME 83.8 fl (80-96); MEAN PLT VOLUME 7.5 fl (7.5-11.1); MONO % 6.4 % (3.8-10.2); NEUT % 52.8 % (42.8-82.8); PLATELET COUNT 330 10^3/uL (134-434); RBC 4.44 M/mm3 (3.60-5.2); RDW 17.4 % (11.6-15.6); WHITE BLOOD COUNT 4.8 K/mm3 (4.0-10.0)
[2023-01-18 12:52] LABS: POTASSIUM 3.4 mmol/L (3.5-5.1)
[2023-01-18 12:54] LABS: CALCIUM 8.4 mg/dL (8.5-10.1)
[2023-01-18 12:55] LABS: ALBUMIN 2.9 g/dl (3.4-5.0); BLOOD UREA NITROGEN 6.6 mg/dL (7-18)
[2023-01-18 12:58] LABS: CREATININE 0.8 mg/dL (0.55-1.3); PHOSPHOROUS 3.1 mg/dL (2.5-4.9)
[2023-01-18 12:59] LABS: TOT PROT 6.6 g/dl (6.4-8.2)
[2023-01-18 13:01] LABS: BILIRUBIN,TOTAL 0.5 mg/dL (0.2-1)
[2023-01-18] MEDS: SODIUM CHLORIDE 1,000 ML IV SCH (16:52)
[2023-01-18] MEDS: LINEZOLID 600 MG TABLET (RESTRICTED TO ID) PO SCH (21:57)
[2023-01-19] MEDS: SIMETHICONE 80 MG TAB.CHEW (FP) PO SCH ×6 (00:10→22:01)
[2023-01-19] MEDS: AMOX TR/POT CLAV 875MG/125MG TABLETS (FP) PO SCH ×2 (08:10→17:26)
[2023-01-19] MEDS: LINEZOLID 600 MG TABLET (RESTRICTED TO ID) PO SCH ×2 (11:34→22:01)
[2023-01-19] MEDS: FAMOTIDINE 20 MG/50 ML IVPB 20 MG/50 ML MG IVPB SCH ×2 (11:34→22:02)
[2023-01-19] MEDS ORDERED: METOCLOPRAMIDE HCL 10 MG TABLET (FP) PO ONE (14:25)
[2023-01-19 15:02] VITALS: BMI 29.9
[2023-01-19] MEDS: SODIUM CHLORIDE 1,000 ML IV SCH (17:18)
[2023-01-19] MEDS ORDERED: INSULIN (NOVOLOG) ASPART 100 UNITS/ML 10ML VIAL ONE (20:43)
[2023-01-20] MEDS: SIMETHICONE 80 MG TAB.CHEW (FP) PO SCH ×4 (01:32→13:38)
[2023-01-20 07:36] LABS: BASO % 1.1 % (0-2.0); EOS % 4.1 % (0-4.5); HEMATOCRIT 34.5 % (32.4-45.2); HEMOGLOBIN 12.3 GM/dL (10.7-15.3); LYMPH % 33.5 % (8-40); MCH 29.6 pg (25.7-33.7); MCHC 35.6 g/dl (32.0-36.0); MEAN CELL VOLUME 83.2 fl (80-96); MEAN PLT VOLUME 7.7 fl (7.5-11.1); NEUT % 54.3 % (42.8-82.8); PLATELET COUNT 237 10^3/uL (134-434); RBC 4.15 M/mm3 (3.60-5.2); RDW 16.7 % (11.6-15.6); WHITE BLOOD COUNT 4.6 K/mm3 (4.0-10.0)
[2023-01-20 07:52] LABS: POTASSIUM 3.2 mmol/L (3.5-5.1)
[2023-01-20 07:57] LABS: CALCIUM 8.5 mg/dL (8.5-10.1)
[2023-01-20 07:58] LABS: ALBUMIN 2.7 g/dl (3.4-5.0); BLOOD UREA NITROGEN 5.9 mg/dL (7-18)
[2023-01-20 08:02] LABS: BILIRUBIN,TOTAL 0.7 mg/dL (0.2-1); CREATININE 0.8 mg/dL (0.55-1.3)
[2023-01-20] MEDS ORDERED: KCL 10 MEQ IVPB 10 MEQ/100 ML INFUS.BAG IVPB SCH (08:45)
[2023-01-20 08:47] LABS: MAGNESIUM 1.4 mg/dL (1.8-2.4)
[2023-01-20] MEDS: AMOX TR/POT CLAV 875MG/125MG TABLETS (FP) PO SCH (08:54)
[2023-01-20] MEDS ORDERED: MAGNESIUM 2GM/50ML STERILE WATER IVPB IVPB ONE (09:45)
[2023-01-20] MEDS: FAMOTIDINE 20 MG/50 ML IVPB 20 MG/50 ML MG IVPB SCH (09:59)
[2023-01-20] MEDS ORDERED: POTASSIUM CHLORIDE TABS 20 MEQ TABLET.ER (FP) PO ONE (10:00)
[2023-01-20] MEDS: LINEZOLID 600 MG TABLET (RESTRICTED TO ID) PO SCH (10:00)
[2023-01-20] MEDS ORDERED: MAGNESIUM OXIDE 400 MG TABLET (FP) PO ONE (14:00)
[2023-01-20 15:47] VITALS: BP 134/88; PULSE 101; RESP 20; TEMP 97.5
== END 2023-01-20 14:25 | disposition home or self-care (01) | DRG 394 ==
LOC: JER 01:31 → JERBED 06:59 → J7W 20:20
PROVIDERS: ADMIT Internal Medicine
DX: K91.89 Other postprocedural complications and disorders of digestive system (principal); K56.7 Ileus, unspecified; Y83.8 Other surgical procedures as the cause of abnormal reaction of the patient, or of later complication, without mention of misadventure at the time of the procedure; R94.31 Abnormal electrocardiogram [ECG] [EKG]; I10 Essential (primary) hypertension; K59.09 Other constipation; E78.5 Hyperlipidemia, unspecified; E66.9 Obesity, unspecified; Z68.30 Body mass index [BMI] 30.0-30.9, adult
CPT/HCPCS: 0241U-QW; 36415; 71045-TC-FY; 74019-TC-FY; 74177-TC; 80053; 81003; 83605; 83735; 84100; 85025; 85610; 85730; 86850; 86900; 86901; 87086; 87324; 87449; 93005; 93010; 99285-25

== ENCOUNTER 2023-07-15 04:48 | Day surgery (SDC) | payer OTHER ==
[2023-07-11 15:02] VITALS: BMI 29.3
[2023-07-15 09:29] VITALS: TEMP 97.6
[2023-07-15 11:39] VITALS: BP 130/86; PULSE 85; RESP 16
== END 2023-07-15 12:28 | disposition home or self-care (01) ==
LOC: JASU-ENDO 04:48
PROVIDERS: ATTEND Internal Medicine Gastroenterology
PROC: 3E0H8KZ Introduction of Other Diagnostic Substance into Lower GI, Via Natural or Artificial Opening Endoscopic (ICD-10-PCS; 2023-07-15)
PROC: 0DBL8ZX Excision of Transverse Colon, Via Natural or Artificial Opening Endoscopic, Diagnostic (ICD-10-PCS; principal; 2023-07-15 10:00)
DX: K63.5 Polyp of colon (principal); K64.8 Other hemorrhoids; Z98.0 Intestinal bypass and anastomosis status; Z87.19 Personal history of other diseases of the digestive system
CPT/HCPCS: 88305-TC